=== PATIENT | male | born 1950 | race Caucasian/White ===

== ENCOUNTER 2023-04-14 07:43 | Inpatient (IN) ==
--- NOTE | 2023-04-14 08:09 | Emergency Department Note ---
Impression & Plan Closed hip fracture, Syncope ED Provider Note Diagnosis: Hip fracture, syncope Disposition: Admission CHIEF COMPLAINT: Fall HPI: Patient is a 72-year-old male presenting with complaint of left hip pain. Patient states he sleeps in a recliner at baseline was getting up to go to the bathroom was walking towards the bathroom and states he fell. Patient states he had episode of passing out when he was trying to get up and woke up on the ground. Patient denies being on any blood thinners. Patient states his only pain is at his left hip. Patient denies any active chest pain or shortness of breath. PAST MEDICAL HISTORY: See Below PAST SURGICAL HISTORY: See Below SOCIAL HISTORY: See Below HOME MEDICATIONS: See Below ALLERGIES: See Below VITALS: See Below PHYSICAL EXAMINATION: GENERAL: Well appearing, well nourished, NAD, non-toxic. EYE EXAM: Normal conjunctiva. OROPHARYNX: Moist mucus membranes. Grossly normal dentition. NECK: Supple, no midline tenderness LUNGS: Clear to auscultation. Normal chest wall mechanics. HEART: NSR ABDOMEN: Abdomen soft, non-tender, normo-active bowel sounds, no masses, no rebound or guarding BACK: No CVA TTP. SKIN: No rashes and no bruising. UPPER EXTREMITIES: Upper extremities are grossly normal LOWER EXTREMITIES: +2 dorsal pedis pulses bilateral lower extremities, no tenderness over left ankle left knee joint, tenderness over left hip joint NEURO EXAM: A&O x3,, normal speech, moves all 4 extremities, 5 out of 5 muscle strength upper and lower extremities bilaterally, Intact sensation upper and lower extremities bilaterally PSYCH: Cooperative MEDICAL DECISION MAKING: History obtained from: Patient ER Course: Patient is a 72-year-old male presenting status post fall at home with syncopal episode. Patient having left hip pain. Patient not hit his head or have neck pain. Patient found to have left hip fracture. Patient admitted to medicine service with consultation with orthopedics. Labs (independently interpreted) are significant for: Troponin negative Imaging results (independently interpreted): Hip x-ray with acute fracture present Medications given: Normal saline, morphine Consultants: Discussion was had with hospitalist who accepts patient to their service further treatment and evaluation. Discussion had with Dr. Perea of orthopedics who agrees with admission to medicine service recommends keeping patient n.p.o. after midnight for potential surgery tomorrow morning Triage Nursing notes reviewed and agree them. Vital Signs: reviewed and remarkable for: no significant abnormalities Note Past Med/Surg History Medical History Anxiety Atopic dermatitis CAD (coronary artery disease) S/p NSTEMI August 2012, leaving ER AMA Cardiac cath several weeks later showed blunted occlusion of RCA and other nonobstructive disease Esophageal reflux (07/25/12) Non compliance w medication regimen Tobacco use Surgical History History of ankle surgery Family History Father Diabetes Social History Smoking Status: Current every day smoker Tobacco Type: Cigarettes Second Hand Exposure: Yes; Do You Dip or Chew Tobacco: No; Hx Alcohol Use: No Hx Substance Use: No Preferred Language: Romanian Communication Ability: Effective 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 Beliefs That Will Affect Care: None Current Living Situation: Family Feels Safe at Home: Yes Assistive Devices: None Allergies Allergies Allergy/AdvReac Type Severity Reaction Status Date / Time No Known Allergies Allergy Unverified 04/14/23 10:18 Home Meds Home Medications Medication Instructions Recorded Confirmed escitalopram oxalate 10 mg tablet 10 mg PO QAM 04/14/23 04/14/23 gabapentin 300 mg capsule 300 mg PO PM 04/14/23 04/14/23 Results & Data (ED) Vital Signs Vital Signs - 24 hr 04/14/23 07:10 04/14/23 08:02 04/14/23 09:16 Temperature 36.6 C Temperature Source Oral Pulse Rate 95 H 75 Pulse Rate [Apical] 85 Pulse Rhythm Regular Pulse Rhythm [Apical] Regular Respiratory Rate 19 17 Respiratory Effort / Characteristics Non-Labored Non-Labored Respiratory Depth Normal Normal Respiratory Pattern Regular Blood Pressure 148/82 H Blood Pressure [Left Arm] 146/77 H Blood Pressure Mean 104 Blood Pressure Mean [Left Arm] 100 Pulse Oximetry 95 95 Oxygen Delivery Method Room Air Room Air Sepsis Recent Fever Within 48 Hours No Sepsis New/Unexplained Change in Mental Status No Sepsis Action Taken by Nursing No Action Required 04/14/23 11:00 Temperature Temperature Source Pulse Rate Pulse Rate [Apical] 88 Pulse Rhythm Pulse Rhythm [Apical] Respiratory Rate 19 Respiratory Effort / Characteristics Respiratory Depth Respiratory Pattern Blood Pressure Blood Pressure [Left Arm] 118/61 Blood Pressure Mean Blood Pressure Mean [Left Arm] 80 Pulse Oximetry 92 Oxygen Delivery Method Room Air Sepsis Recent Fever Within 48 Hours Sepsis New/Unexplained Change in Mental Status Sepsis Action Taken by Nursing Laboratory Data 04/14/23 08:40 04/14/23 08:40 Lab Results 04/14/23 04/14/23 04/14/23 Range/Units 08:30 08:40 10:02 WBC 12.79 H (4.8-10.8) K/ul RBC 5.13 (4.70-6.10) M/uL Hgb 14.5 (14.0-18.0) g/dl Hct 44.5 (42.0-52.0) % MCV 86.7 (80.0-100.0) fL MCH 28.3 (25.0-34.0) pg MCHC 32.6 (32.0-36.0) g/dL RDW Std Deviation 43.9 (36.4-46.3) fL RDW Coeff of Shaneka 13.7 (11.5-14.5) % Plt Count 233 (130-400) K/uL MPV 10.5 (9.4-12.4) fL Immature Gran % (Auto) 0.5 % Neut % (Auto) 89.5 % Lymph % (Auto) 3.8 % [place] % (Auto) 5.7 % Eos % (Auto) 0.3 % Baso % (Auto) 0.2 % Neut # (Auto) 11.46 H (1.40-6.50) K/uL Lymph # (Auto) 0.48 L (1.20-3.40) K/uL [place] # (Auto) 0.73 H (0.11-0.59) K/uL Eos # (Auto) 0.04 (0.00-0.50) K/uL Baso # (Auto) 0.02 (0.00-0.20) K/uL Immature Gran # (Auto) 0.06 (0.01-0.20) K/uL Platelet Estimate Normal (Normal) PT Cancelled 10.8 INR Cancelled 1.0 APTT Cancelled 25 PTT Ratio Cancelled 0.9 Sodium 135 L (136-145) mmol/L Potassium 4.4 (3.5-5.1) mmol/L Chloride 102 (98-107) mmol/L Carbon Dioxide 30 (21-32) mmol/L Anion Gap 3 (3-11) BUN 15 (6-23) mg/dl Creatinine 1.27 (0.6-1.4) mg/dl Est Cr Clr Drug Dosing 55.9 ml/min Est GFR ( Amer) 64.1 ml/min Est GFR (Non-Af Amer) 55.3 ml/min BUN/Creatinine Ratio 11.8 (10-20) Glucose 141 H (70-99(Fasting)) mg/dl Calcium 8.9 (8.6-10.3) mg/dl Magnesium 1.8 (1.7-2.4) mg/dl Total Bilirubin 0.5 (0.2-1.0) mg/dl AST 13 (13-39) U/L ALT 8 (7-52) U/L Alkaline Phosphatase 82 (34-104) U/L Troponin I High Sens 5.9 (0-20) pg/ml Total Protein 7.0 (6.0-8.3) gm/dl Albumin 3.8 (3.4-5.0) gm/dl Globulin 3.2 (2.5-4.0) gm/dl Albumin/Globulin Ratio 1.2 (0.9-2) Urine Color Yellow Urine Appearance Clear (Clear) Urine pH 6.5 (4.5-7.5) Ur Specific [place] 1.017 (1.000-1.030) Urine Protein Negative (Negative) Urine Glucose (UA) Negative (Negative) Urine Ketones Negative (Negative) Urine Blood Negative (Negative) Urine Nitrite Negative (Negative) Urine Bilirubin Negative (Negative) Urine Urobilinogen Negative (Negative) Ur Leukocyte Esterase Negative (Negative) Administered Medications Discontinued Medications Sodium Chloride (Nss) 500 mls @ 999 mls/hr IV .Q31M ONE Stop: 04/14/23 08:33 Last Infusion: 04/14/23 09:25 Dose: Infused Documented By: Admin: 04/14/23 08:47 Dose: 999 mls/hr Documented By: SHERRI Morphine Sulfate (Morphine Sulfate 4 Mg/Ml 1 Ml Carp\Vial) 4 mg IV NOW STA Stop: 04/14/23 08:02 Last Admin: 04/14/23 08:48 Dose: 4 mg Documented By: [facility] Imaging Data Radiologist's Impression: Hip/Pelvis X-Ray 04/14/23 08:01 XR hip LT 2V w pelvis HISTORY: 72 years-old Male fall, left hip pain . Left-sided hip pain status post fall COMPARISON: 12/06/2021 TECHNIQUE: AP view the pelvis with 2 views of the left hip FINDINGS: Unremarkable appearance of the right hip arthroplasty. Demineralized appearance of the bones. Moderate left hip osteoarthritis. There is an acute nondisplaced transcervical left femoral neck fracture with mild impaction. No dislocation or avascular necrosis. No pelvic ring fracture. IMPRESSION: Acute nondisplaced mildly impacted transcervical left femoral fracture. ACT 112: Negative or not required by law. The above report was generated using voice recognition software. It may contain grammatical, syntax or spelling errors. Electronically signed by: Michael Alford M.D. 04/14/2023 10:59 AM Chest X-Ray 04/14/23 08:02 SINGLE VIEW CHEST CLINICAL HISTORY: Syncope FINDINGS: 2 AP supine chest radiographs are compared to study dated 12/07/2021. The heart is mildly enlarged. The pulmonary vasculature is noncongested. The lungs and pleural spaces are clear. No pneumothorax is seen. The skeletal structures are osteopenic. There are chronic/healed left-sided rib fractures. IMPRESSION: No active disease in the chest. ACT 112: Negative or not required by law. Electronically signed by: Alverto Kaur M.D. 04/14/2023 10:35 AM Discharge Plan Visit Data Chief Complaint: Hip Pain Stated Complaint: FALL, HIP PAIN ED Provider: Jordon Maldonado Discharge Problem: Closed hip fracture, Syncope Forms Stand Alone Forms: [facility] Prescriptions Prescriptions: No Action gabapentin 300 mg capsule 300 mg PO PM escitalopram oxalate 10 mg tablet 10 mg PO QAM Referrals Referrals: Ankit Metz MD [Outside Practitioners] -
[2023-04-14] MEDS: SODIUM CHLORIDE 0.9% 500 ML IV ONE (08:47)
[2023-04-14] MEDS: MoRPHine SULFATE 4 MG/ML 1 ML CARP\\VIAL IV STA (08:48)
[2023-04-14 09:00] LABS: Appearance Urine Clear (Clear); Bilirubin Urine Negative (Negative); Blood Urine Negative (Negative); Color Urine Yellow; Glucose Urine UA Negative (Negative); Ketones Urine Negative (Negative); Leukocyte Esterase Urine Negative (Negative); Nitrite Urine Negative (Negative); Protein Urine Negative (Negative); Specific Gravity Urine 1.017 (1.000-1.030); Urobilinogen Urine Negative (Negative); pH Urine 6.5 (4.5-7.5)
[2023-04-14 09:16] LABS: Albumin Globulin Ratio 1.2 (0.9-2); Albumin Level 3.8 gm/dl (3.4-5.0); BUN Creatinine Ratio 11.8 (10-20); Bilirubin,Total 0.5 mg/dl (0.2-1.0); Calcium 8.9 mg/dl (8.6-10.3); Creatinine Clr Calc Pharmacy 55.9 ml/min; Est GFR (African American) 64.1 ml/min; Est GFR (Non-African American) 55.3 ml/min; Globulin 3.2 gm/dl (2.5-4.0); Magnesium 1.8 mg/dl (1.7-2.4); Potassium 4.4 mmol/L (3.5-5.1)
[2023-04-14 09:23] LABS: Troponin I High Sensitivity 5.9 pg/ml (0-20)
[2023-04-14 09:24] LABS: Basophils # (auto) 0.02 K/uL (0.00-0.20); Basophils % (auto) 0.2 %; Eosinophils # (auto) 0.04 K/uL (0.00-0.50); Eosinophils % (auto) 0.3 %; Hematocrit (blood only) 44.5 % (42.0-52.0); Hemoglobin 14.5 g/dl (14.0-18.0); Immature Granulocytes # (auto) 0.06 K/uL (0.01-0.20); Immature Granulocytes % (auto) 0.5 %; Lymphocytes # (auto) 0.48 K/uL (1.20-3.40); Lymphocytes % (auto) 3.8 %; Mean Corpuscular Hemoglobin 28.3 pg (25.0-34.0); Mean Corpuscular Hgb Conc 32.6 g/dL (32.0-36.0); Mean Corpuscular Volume 86.7 fL (80.0-100.0); Mean Platelet Volume 10.5 fL (9.4-12.4); Monocytes # (auto) 0.73 K/uL (0.11-0.59); Monocytes % (auto) 5.7 %; Neutrophils # (auto) 11.46 K/uL (1.40-6.50); Neutrophils % (auto) 89.5 %; Platelet Count 233 K/uL (130-400); Platelet Estimate Normal (Normal); RDW Coefficient of Variation 13.7 % (11.5-14.5); RDW Standard Deviation 43.9 fL (36.4-46.3); Red Blood Count 5.13 M/uL (4.70-6.10); White Blood Count 12.79 K/ul (4.8-10.8)
--- NOTE | 2023-04-14 10:36 | XRay Report ---
SINGLE VIEW CHEST CLINICAL HISTORY: Syncope FINDINGS: 2 AP supine chest radiographs are compared to study dated 12/07/2021. The heart is mildly e nlarged. The pulmonary vasculature is noncongested. The lungs and pleural spaces are clear. No pneumo thorax is seen. The skeletal structures are osteopenic. There are chronic/healed left-sided rib fract ures. IMPRESSION: No active disease in the chest. ACT 112: Negative or not required by law. Electronically signed by: Alverto Kaur M.D. 04/14/2023 10:35 AM
[2023-04-14 10:48] LABS: Partial Thromboplastin Ratio 0.9; Partial Thromboplastin Time 25 Seconds (21-31); Prothrombin Time 10.8 Seconds (9.0-12.0)
--- NOTE | 2023-04-14 11:00 | XRay Report ---
XR hip LT 2V w pelvis HISTORY: 72 years-old Male fall, left hip pain . Left-sided hip pain status post fall COMPARISON: 12/06/2021 TECHNIQUE: AP view the pelvis with 2 views of the left hip FINDINGS: Unremarkable appearance of the right hip arthroplasty. Demineralized appearance of the bones. Moderat e left hip osteoarthritis. There is an acute nondisplaced transcervical left femoral neck fracture wi th mild impaction. No dislocation or avascular necrosis. No pelvic ring fracture. IMPRESSION: Acute nondisplaced mildly impacted transcervical left femoral fracture. ACT 112: Negative or not required by law. The above report was generated using voice recognition software. It may contain grammatical, syntax o r spelling errors. Electronically signed by: Michael Alford M.D. 04/14/2023 10:59 AM
--- NOTE | 2023-04-14 11:17 | History & Physical Report ---
Date of Service April 14, 2023 Assessment & Plan (1) Transcervical fracture of left femur: (2) Syncope: (3) Atopic dermatitis: (4) CAD (coronary artery disease): Plan Mr. Monte is a 72 year old gentleman with past history of CAD, ICM, GERD, atopic dermatitis , prediabetes, HLD, prior fall with right hip fracture 2021 s/p right hemiarthroplasty who is presenting to [facility] after fall with subsequent hip fracture. Patient reports questionable syncope, but reports it to be more disorientation after landing. Ortho consulted, planning for surgical intervention in the am. Patient with long standing medication noncompliance, mostly secondary to financial limitations. #Left transcervical femoral fracture Hip XR IMPRESSION: Acute nondisplaced mildly impacted transcervical left femoral fracture. Ortho consult -NPO midnight for surgical intervention in am Tylenol 1000mg q8h scheduled, po oxy 5 for moderate, iv morphine 1mg severe #Mechanical fall #c/f Syncopal episode Patient's reports suggest disorientation on ground after fall 2/2 pain, as he denies presyncope and recalls "fall" -Given cardiac history noted below, plan for ECHO and tele monitoring Trend trop and obtain BNP CT head not obtained on admit, ordered #History of ICM #HTN #Obstructive CAD s/p cath 2012, NSTEMI occluded RCA -Monitor on tele -Consider initiating low dose BB post-operatively, encourage ASA s/p procedure ECHO as above Monitor on tele RCRI calss III risk History of medication noncompliance Taking Metoprolol BID after discontinuing does not take heart meds A1C Gabapentin 300mg BID Escitalopram 10mg daily CKD III #Leukocytosis -UA negative, no infectious symptoms at this time -CBC in am #COPD no wheezing noted, CXR clear, rhonchi cleared with cough Only uses albuterol inhaler secondary to cost Albuterol nebs PRN IS and monitor post-op o2 levels #Tobacco use 0.5-1ppd day #Atopic Dermatitis Didn't receive dupixent injections for "months" Will amlactin given irritation and excoriations from scratching on lower extremities PCP Dr Dunham DVT SCDs Admit med tele Admission and Anticipated Discharge Date Admission Date: Time spent evaluating patient, direct bedside care, chart review, placing orders, interpretation of diagnostic studies, discussion with consultants, patient, and family members, as well as other required patient management activities is 60 minutes. History of Present Illness Chief Complaint: Left hip pain Primary Care Provider: Geena Dunham DO Mr. Monte is a 72 year old gentleman with past medical history remarkable for obstructive CAD s/p [facility] with RCA disease, ICM, HTN, GERD, prediabetes and prior mechanical fall with right hip fracture s/p replacement who presented to [facility] ED due to left hip pain after fall. Patient states that sleeps in a recliner in his sister's apartment with a bedside commode in the living room with him. He woke to use the commode and notes that he just "felt [himself] going forward." He didn't feel like he "passed out" but suspects the fall and pain made him feel disoriented. He notes that he does not take Metoprolol, despite recently being prescribed this medication, as cost is limiting. He also does not take aspirin. He only takes his escitalopram and gabapentin once daily. He states he has otherwise been in his usual state of health, denying any chest pain, palpitations, syncope or near syncope, fevers, GI upset, or other acute concerns. He notes that he doesn't "go out much" and his sister often gets the groceries. He reports feeling chronic balance issues after his right hip replacement, noting his leg just never feels "quite balanced." He denies any recent alcohol use. He smokes 05.-1ppd No illicit substances In the ED, vitals were notable for BP in 140s, HR of 80 to 90s, and O2 sat of low 90s on room air. Imaging revealed left transcervical femur fracture. CXR WNL EKG reviewed, no acute changes appreciate ED interventions: morphine Consultants: Ortho Patient to be admitted to [facility] for further evaluation and management of left hip fracture. Allergies Allergy/AdvReac Type Severity Reaction Status Date / Time No Known Allergies Allergy Unverified 04/14/23 10:18 Home Medications Medication Instructions Recorded Confirmed Type escitalopram oxalate 10 mg tablet 10 mg PO QAM 04/14/23 04/14/23 History gabapentin 300 mg capsule 300 mg PO PM 04/14/23 04/14/23 History Past Med/Surg History Medical History Anxiety Atopic dermatitis CAD (coronary artery disease) S/p NSTEMI August 2012, leaving ER AMA Cardiac cath several weeks later showed blunted occlusion of RCA and other nonobstructive disease Esophageal reflux (07/25/12) Non compliance w medication regimen Tobacco use Surgical History History of ankle surgery Family History Father Diabetes Social History Smoking Status: Current every day smoker Tobacco Type: Cigarettes Second Hand Exposure: Yes; Do You Dip or Chew Tobacco: No; Hx Alcohol Use: No Hx Substance Use: No Preferred Language: Slovenian Communication Ability: Effective Control Panel Operator Required: No Beliefs That Will Affect Care: None Current Living Situation: Family Feels Safe at Home: Yes Assistive Devices: None Review of Systems Review of Systems: Constitutional: (-) fever/chills, (-) recent loss of weight, (-) appetite changes, (-) night sweats. Head: (-) headache, (-) dizziness. Eye: (-) blurring of vision, (-) double vision, (-) redness. Ear: (-) hearing loss, (-) discharge, (-) vertigo Nose: (-) discharge, (-) bleeding, (-) congestion, (-) post nasal drip. Throat: (-) sore throat, (-) hoarseness of voice, (-) odynophagia. Cardiovascular: (-) chest pain, (-) palpitations, (-) syncope, (-) orthopnea, (- ) PND, (-) leg swelling. Respiratory: (-) shortness of breath, (-) cough, (-) wheezing, (-) hemoptysis. Neuro: (+) weakness in extremities, (-) numbness, (-) tingling, (-) tremor. Gastrointestinal: (-) belly pain, (-) belly distension, (-) nausea, (-) vomiting, (-) diarrhea, (-) constipation, (-) na, (-) hematemesis, (-) hem atochezia, (-) bowel incontinence Genitourinary: (-) hematuria, (-) dysuria, (-) polyuria, (-) hesitancy, (-) frequency, (-) urinary incontinence. Musculoskeletal: (-) myalgia, (-) arthralgia. Skin: (+) diffuse dryness, chronic Endocrine: (-) heat/cold intolerance. Psychiatry: (-) depression, (-) hallucination. Physical Exam Physical Exam: GENERAL APPEARANCE: AxOx4, mildly uncomfortable gentleman HEENT: NC, AT. MMM. EOMI, clear conjunctiva, oropharynx clear. NECK: Supple without lymphadenopathy. No stiffness or restricted ROM. HEART: Normal rate and regular rhythm, normal S1/S1, no m/r/g LUNGS: CTAB, moving air well. few rhonchi, cleared with cough ABDOMEN: Soft, nontender, nondistended with good bowel sounds heard. BACK: No CVAT, no obvious deformity. EXTREMITIES: Without cyanosis, clubbing or edema. pulse and sensation intact BLE NEUROLOGICAL: Grossly nonfocal. Alert and oriented, moving all 4 extremities. CN not formally tested but appear grossly intact. Skin: diffuse lower extremity xerosis, L>R. Results & Data Results & Data Vital Signs (Past 12 Hours) Vital Signs Temp Pulse Pulse Resp BP BP Pulse Ox 04/14/23 11:00 88 19 118/61 92 04/14/23 09:16 75 04/14/23 08:02 36.6 C 85 17 146/77 H 95 04/14/23 07:10 95 H 19 148/82 H 95 O2 Del Method 04/14/23 11:00 Room Air 04/14/23 09:16 04/14/23 08:02 Room Air 04/14/23 07:10 Room Air Laboratory Results Short CBC 04/14/23 Range/Units 08:40 WBC 12.79 H (4.8-10.8) K/ul Hgb 14.5 (14.0-18.0) g/dl Hct 44.5 (42.0-52.0) % Plt Count 233 (130-400) K/uL BMP 04/14/23 08:40 Sodium 135 L Potassium 4.4 Chloride 102 Carbon Dioxide 30 BUN 15 Creatinine 1.27 Glucose 141 H Calcium 8.9 Liver Function 04/14/23 Range/Units 08:40 Total Bilirubin 0.5 (0.2-1.0) mg/dl AST 13 (13-39) U/L ALT 8 (7-52) U/L Alkaline Phosphatase 82 (34-104) U/L Albumin 3.8 (3.4-5.0) gm/dl Urine 04/14/23 Range/Units 08:30 Urine Color Yellow Urine Appearance Clear (Clear) Urine pH 6.5 (4.5-7.5) Ur Specific [place] 1.017 (1.000-1.030) Urine Protein Negative (Negative) Urine Glucose (UA) Negative (Negative) Diagnostic Findings Hip/Pelvis X-Ray 04/14/23 08:01 XR hip LT 2V w pelvis HISTORY: 72 years-old Male fall, left hip pain . Left-sided hip pain status post fall COMPARISON: 12/06/2021 TECHNIQUE: AP view the pelvis with 2 views of the left hip FINDINGS: Unremarkable appearance of the right hip arthroplasty. Demineralized appearance of the bones. Moderate left hip osteoarthritis. There is an acute nondisplaced transcervical left femoral neck fracture with mild impaction. No dislocation or avascular necrosis. No pelvic ring fracture. IMPRESSION: Acute nondisplaced mildly impacted transcervical left femoral fracture. ACT 112: Negative or not required by law. The above report was generated using voice recognition software. It may contain grammatical, syntax or spelling errors. Electronically signed by: Michael Alford M.D. 04/14/2023 10:59 AM Chest X-Ray 04/14/23 08:02 SINGLE VIEW CHEST CLINICAL HISTORY: Syncope FINDINGS: 2 AP supine chest radiographs are compared to study dated 12/07/2021. The heart is mildly enlarged. The pulmonary vasculature is noncongested. The lungs and pleural spaces are clear. No pneumothorax is seen. The skeletal structures are osteopenic. There are chronic/healed left-sided rib fractures. IMPRESSION: No active disease in the chest. ACT 112: Negative or not required by law. Electronically signed by: Alverto Kaur M.D. 04/14/2023 10:35 AM Medications Administered Home Medications Medication Instructions Recorded Confirmed Last Taken aspirin 81 mg tablet,delayed 81 mg PO BID #10 tabs 12/08/21 04/14/23 04/13/23 release magnesium oxide 400 mg (241.3 mg 400 mg PO QAM #10 tabs 10/04/14/23 04/13/23 magnesium) tablet escitalopram oxalate 10 mg tablet 10 mg PO QAM 04/14/23 04/14/23 04/13/23 gabapentin 300 mg capsule 300 mg PO BID 04/14/23 04/14/23 04/13/23
[2023-04-14] MEDS ORDERED: MoRPHine SULFATE 2 MG/ML CARP IV PRN (11:49)
[2023-04-14] MEDS: ACETAMINOPHEN 500 MG TAB PO SCH (12:51)
--- OUTSIDE RECORDS SUMMARY | 2023-04-14 13:05 | External Medical Summary | Summary of Care ---
Author Name Unknown Organization [facility] Address [address] [place] [address] Phone [phone] Care Team Providers Care Hand Grinder Name Role Phone Geena Dunham DO Primary Care Provider [phone] Reason for Visit * Reason Comments Follow Up Encounter Details Date Type Department Care Team ([facility] st Contact Info) Description 03/29/2023 11:50 AM EST Office Visit [place] [address] [place] [address] Geena Dunham DO [address] [place] [address] COPD, moderate (HCC)*; Agoraphobia with panic attacks; ATNIA (generalized anxiety disorder); Chronic systolic congestive heart failure (HCC); Dyslipidemia, goal LDL below 70; Prediabetes; Chronic kidney disease, stage 3a (HCC) Allergies No known active allergiesdocumented as of this encounter (statuses as of 03/29/2023) Medications Medication Sig Dispensed Refills Start Date End Date Status aspirin enteric coated (ECOTRIN LOW STRENGTH) 81 MG TBECIndications:ASC VD (arteriosclerotic cardiovascular disease),Old myocardial infarct Take 1 Tab by mouth daily. 100 Tab 5 07/28/2016 Active Nebulizers (NEBULIZER COMPRESSOR) MISCIndications:Int erstitial lung disease (HCC) Inhale via nebulizer. Use as directed. 1 Each 1 09/06/2018 Active Additional Information Patient not taking.Reported on 02/11/2022 Respiratory Therapy Supplies (NEBULIZER/TUBING/M OUTHPIECE) KITIndications:Inte rstitial lung disease (HCC) Use to inhaler medications 1 Kit 1 09/06/2018 Active Additional Information Patient not taking.Reported on 02/11/2022 Albuterol Sulfate HFA 108 (90 Base) MCG/ACT Inhalation Aerosol SolutionIndications :Chronic cough INHALE 2 PUFFS BY MOUTH EVERY 4 HOURS NEEDED FOR WHEEZING 18 g 0 07/10/2021 Active Additional Information Patient not taking.Reported on 09/25/2022 Dupixent 300 MG/2ML Subcutaneous Solution Pen-injector (Dupilumab) Inject 600mg (2 pens) under the skin once. Then inject 300mg (1 pen) under the skin every 2 weeks thereafter. 12 mL 1 10/06/2021 Active Sennosides-Docusate Sodium 8.6-50 MG Oral Tablet (Senokot-S) 2 Tablets. 0 12/08/2021 Active Potassium Chloride ER 10 MEQ Oral Capsule Extended ReleaseIndications: Leg swelling Take 1 Capsule by mouth in the morning and 1 Capsule before bedtime. 60 Capsule 3 02/11/2022 Active Additional Information Patient not taking.Reported on 09/25/2022 Fluticasone Furoate-Vilanterol 100-25 MCG/ACT Inhalation Aerosol Powder Breath Activated (BREO ellipta)Indications :COPD, moderate (HCC) Inhale 1 Puff by mouth in the morning. 14 Each 10 09/25/2022 Active Additional Information Patient not taking.Reported on 03/29/2023 Escitalopram Oxalate 10 MG Oral Tablet (Lexapro)Indication s:Agoraphobia with panic attacks,ATNIA (generalized anxiety disorder) Take 1 Tablet by mouth in the morning. 90 Tablet 5 03/29/2023 Active Gabapentin 300 MG Oral Capsule (Neurontin) Take 1 Capsule by mouth in the morning and 1 Capsule at noon and 1 Capsule before bedtime. 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 60 Tablet 5 03/29/2023 Active Escitalopram Oxalate 10 MG Oral Tablet (Lexapro)Indication s:Agoraphobia with panic attacks,TANIA (generalized anxiety disorder) Take 1 Tablet by mouth in the morning. 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 Take 1 Tablet (25 mg) by mouth in the morning and 1 Tablet (25 mg) before bedtime.. 60 Tablet 5 09/25/2022 4 Discontinu ed(Refill) Gabapentin 300 MG Oral Capsule (Neurontin) Take 1 Capsule by mouth in the morning and 1 Capsule at noon and 1 Capsule before bedtime. 0 4 Discontinu ed(Refill) Hospital, Clinic, or Other Facility Administered Medication Ordered Dose Route Frequency Start Date End Date Status albuterol (PROVENTIL HFA) inhaler 4 PuffIndications:Chronic cough 4 Puff IN ONCE PRN 09/05/2017 Active Dupilumab (Dupixent) prefilled syringe 300 mgIndications:Atopic dermatitis, unspecified type 300 mg SC [id number] 08/07/2022 Active documented as of this encounter (statuses as of 03/29/2023) Active Problems Problem Noted Date Diagnosed Date COPD, moderate 09/25/2022 Systolic congestive heart failure 03/31/2022 Recurrent major depressive disorder 02/20/2022 Chronic kidney disease, stage 3a 03/24/2021 Overview: Per CKD protocol Prediabetes 03/24/2021 Overview: Per Prediabetes protocol Immunization refused 09/03/2017 Colonoscopy refused 09/03/2017 Sleep disturbance 02/27/2014 Agoraphobia with panic attacks 02/27/2014 ASCVD (arteriosclerotic cardiovascular disease) 07/25/2012 Old myocardial infarct 07/25/2012 Tobacco use disorder 11/10/2011 Diaphragmatic hernia 08/01/2002 Esophageal reflux 06/28/2002 Dyslipidemia, goal LDL below 70 documented as of this encounter (statuses as of 03/29/2023) Resolved Problems Problem Noted Date Diagnosed Date Resolved Date Viral gastroenteritis 02/27/20142016 Dehydration 02/27/2014 07/28/2016 Constipation 02/27/2014 07/28/2016 Tobacco use disorder 02/27/2014 017 Dyslipidemia, goal LDL below 70 11/29/2012 07/28/2016 Chronic coronary artery disease 09/02/2012 07/28/2016 Obesity, Class I, BMI 30-34.9 08/10/2012 07/28/2016 Overview: bmi= 30.06 08/10/12 NSTEMI (non-ST elevated myoc ardial infarction) 07/25/2012 07/28/2016 Overweight (BMI 25.0-29.9) 11/10/2011 0 07/28/2016 Overview: bmi= 29.64 11/10/11 Gastroesophageal reflux 11/10/201107/10 Vaccine refused by patient 11/10/2011 0 07/28/2016 ACUTE URI NOS 06/28/2002 03/29/2008 Overview: Resolved per Benign Acute Dxs Protocol #3 ACUTE BRONCHITIS 03/19/2000 07/28/2016 FLU W RESP MANIFEST NEC 03/19/200007/10 Tobacco use disorder 03/19/2000 012 HYPERLIPIDEMIA NEC-NOS 03/19/200007/28 Motion sickness 11/15/1998 07/29/2016 HTN, goal below 140/90 07/28 documented as of this encounter (statuses as of 03/29/2023) Social History Tobacco Use Types Packs/Day Years Used Date Smoking Tobacco: Every Day Cigarettes 1.5 50 Smokeless Tobacco: Never Comments:began at age13 or 1 6--7/18-1ppd Alcohol Use Standard Drinks/Week Comments Yes 0 (1 standard drink = 0.6 oz pur e alcohol) none in 2 yrs PHQ-2 Answer Date Recorded PHQ Adult Total Score 11 02/11/2022 Hunger Vital Sign Answer Date Recorded Within the past 12 months, y ou worried that your food would run out before you got the money to buy more. Never true 02/11/19 23 Within the past 12 months, t he food you bought just didn't last and you didn't have money to get more. Never true 02/11/2022 Sex and Gender Information Value Date Recorded Sex Assigned at Male 02/11/2022 9:14 AM EST Gender Identity Male 02/11/2022 9:14 AM EST Sexual Orientation Straight 02/11/2022 9: 14 AM EST Job Start Date Occupation Industry Not on file Not on file Not on file documented as of this encounter Last Filed Vital Signs Vital Sign Reading Time Taken Comments Blood Pressure 118/70 03/29/2023 12:00 PM EST Pulse 87 03/29/2023 12:00 PM EST Temperature 36.4 C (97.5 F) 03/29/2023 12:[address] Respiratory Rate 18 03/29/2023 12:00 PM EST Oxygen Saturation 93% 03/29/2023 12:00 PM EST Inhaled Oxygen Concentration - - Weight 89.4 kg (197 lb) 03/29/2023 12:00 PM EST Height 182.9 cm (6') 03/29/2023 12:00 PM EST Body Mass Index 26.72 03/29/2023 12:00 PM EST documented in this encounter Progress Notes * Geena Dunham, - 03/29/2023 12:16 PM EST Subjective: Des Monte Jr. is a 72 year old male. Chief Complaint Patient presents with Follow Up HPI: 72 year old male here today for a follow-up. He carries hx of prediabetes, dyslipdemia, COPD, CAD, depression, insomnia, and hx of Systolic Congestive heart failure. He is only taking lexapro and gabapentin. Needs refills. He once again stopped the metoprolol. He thinks due to cost. Will send in rx again. Ongoing tobacco use. He has missed his injections Dupixent for her dermatitis. Suggested to call the office back. He was not able to afford his Breo. He uses the rescue inhaler as n eeded. He has not been ill. No hospital stays. PHM: Patient Active Problem List Diagnosis Code Esophageal reflux K21.9 Diaphragmatic hernia K44.9 Dyslipidemia, goal LDL below 70 E78.5 Tobacco use disorder F17.200 Sleep disturbance G47.9 Agoraphobia with panic attacks F40.01 ASCVD (arteriosclerotic cardiovascular disease) I25.10 Old myocardial infarct I25.2 Immunization refused Z28.21 Colonoscopy refused Z53.20 Chronic kidney disease, stage 3a ([facility]) N18.31 Prediabetes R73.03 Recurrent major depressive disorder ([facility]) F33.9 Systolic congestive heart failure ([facility]) I50.20 COPD, moderate ([facility]) J44.9 Current Outpatient Medications Medication Sig Dispense Refill aspirin enteric coated (ECOTRIN LOW STRENGTH) 81 MG TBEC Take 1 Tab by mouth daily. 100 Tab 5 Escitalopram Oxalate 10 MG Oral Tablet (Lexapro) Take 1 Tablet by mouth in the morning. 90 Tablet 5 Gabapentin 300 MG Oral Capsule (Neurontin) Take 1 Capsule by mouth in the morning and 1 Capsule at noon and 1 Capsule before bedtime. 90 Capsule 3 Nebulizers (NEBULIZER COMPRESSOR) MIS Inhale via nebulizer. Use as directed. (Patient not taking: Reported on 02/11/2022) 1 Each 1 Respiratory Therapy Supplies (NEBULIZER/TUBING/MOUTHPIECE) KIT Use to inhaler medications (Patient not taking: Reported on 02/11/2022) 1 Kit 1 Albuterol Sulfate HFA 108 (90 Base) MCG/ACT Inhalation Aerosol Solution INHALE 2 PUFFS BY MOUTH EVERY 4 HOURS NEEDED FOR WHEEZING (Patient not taking: Reported on 09/25/2022) 18 g 0 Dupixent 300 MG/2ML Subcutaneous Solution Pen-injector (Dupilumab) Inject 600mg (2 pens) under the skin once. Then inject 300mg (1 pen) under the skin every 2 weeks thereafter. (Patient not taking: Reported on 02/11/2022) 12 mL 1 Sennosides-Docusate Sodium 8.6-50 MG Oral Tablet (Senokot-S) 2 Tablets. (Patient not taking: Reported on 02/11/2022) Potassium Chloride ER 10 MEQ Oral Capsule Extended Release Take 1 Capsule by mouth in the morning and 1 Capsule before bedtime. (Patient not taking: Reported on 09/25/2022) 60 Capsule 3 Fluticasone Furoate-Vilanterol 100-25 MCG/ACT Inhalation Aerosol Powder Breath Activated (BREO ellipta) Inhale 1 Puff by mouth in the morning. (Patient not taking: Reported on 03/29/2023) 14 Each 10 Metoprolol Succinate ER 25 MG Oral Tablet Extended Release 24 Hour (toPROL XL) Take 1 Tablet by mouth in the morning and 1 Tablet before bedtime. Take 1 Tablet (25 mg) by mouth in the morning and 1 Tablet (25 mg) before bedtime.. (Patient not taking: Reported on 03/29/2023) 60 Tablet 5 Current Facility-Administered Medications Medication Dose Route Frequency Provider Last Rate Last Admin albuterol (PROVENTIL HFA) inhaler 4 Puff 4 Puff Inhalation Once PRN Izzy Neri MD Dupilumab (Dupixent) prefilled syringe 300 mg 300 mg Subcutaneous Q2 Weeks Paula Alanis PA-C 300 mg at 02/05/23 1052 Review of patient's allergies indicates: No Known Allergies Objective: BP 118/70 | Pulse 87 | Temp 36.4 C (97.5 F) | Resp 18 | Ht 1.829 m (6') | Wt 89.4 kg (197 lb) |SpO2 93% | BMI 26.72 kg/m | BSA 2.13 m Physical Exam: General: alert, healthy, and no distress Heart: regular rate & rhythm, no murmur, and no gallops Lungs: chest symmetric with normal AP diameter, no chest deformities noted, no chest wall tenderness, lungs clear to auscultation Extremities: no edema ASSESSMENT/PLAN: COPD, moderate (HCC) (Primary) Agoraphobia with panic attacks - Escitalopram Oxalate 10 MG Oral Tablet (Lexapro); Take 1 Tablet by mouth in the morning. TANIA (generalized anxiety disorder) - Escitalopram Oxalate 10 MG Oral Tablet (Lexapro); Take 1 Tablet by mouth in the morning. Chronic systolic congestive heart failure (HCC) - Metoprolol Succinate ER 25 MG Oral Tablet Extended Release 24 Hour (toPROL XL); Take 1 Tablet by mouth in the morning and 1 Tablet before bedtime. Dyslipidemia, goal LDL below 70 Prediabetes - HEMOGLOBIN A1C; Future; Expected date: 03/29/2023 Chronic kidney disease, stage 3a (HCC) - BASIC METABOLIC PANEL; Future; Expected date: 03/29/2023 Other orders - Gabapentin 300 MG Oral Capsule (Neurontin); Take 1 Capsule by mouth in the morning and 1 Capsule at noon and 1 Capsule before bedtime. Follow Up: Return in about 6 months (around 09/27/2023) for Labs Today. | For: Labs Today Geena Dunham DO documented in this encounter Nursing Notes * Mis Waite LPN - 03/29/2023 12:04 PM EST The patient has been properly identified by confirmation of name and date of . Chief Complaint Patient presents with Follow Up documented in this encounter Plan of Treatment Upcoming Encounters Date Type Department Care Team (Late st Contact Info) Description 10/06/2023 12:10 PM EDT Office Visit [facility] [address] [place] [id number] Geena Dunham DO [address] [place] [address] Pending Results Name Type Priority Associated Diagnoses Date /Time HEMOGLOBIN A1C Lab Routine Prediabetes 03/29/2023 12:36 PM EST BASIC METABOLIC PANEL Lab Routine Chronic kidney disease, stage 3a (HCC) 03/29/2023 12:36 PM EST Scheduled Orders Name Type Priority Associated Diagnoses Orde r Schedule HEMOGLOBIN A1C Lab Routine Prediabetes Expected: 03/29/2023 (Approximate), Expires: 03/28/2024 BASIC METABOLIC PANEL Lab Routine Chronic kidney disease, stage 3a (HCC) Expected: 03/29/2023 (Approximate), Expires: 03/28/2024 Health Maintenance Due Date Last Done Comments DISCUSS TOBACCO CESSATION (REFER TO SMARTSET #4389) 1948 Pneumococcal Vaccine: 65+ Years (1 of 2 - PCV) 1954 Albumin/Creatinine Ratio 1966 Alpha-1 Antitrypsin 1966 CKD PHOS USE SMARTSET 02601 1966 Hepatitis C Screening 1966 Cologuard 1993 Colonoscopy 1993 Colorectal Cancer Screening 1993 Fecal Occult Blood Test 1993 Sigmoidoscopy 1993 LUNG CANCER SCREENING - USE SMARTSET 96956 1998 Zoster Vaccines (1 of 2) 1998 DTaP,Tdap,and Td Vaccines (1 - Tdap) 06/09/1998 06/08/1998 AAA Screening 2013 Depression, Most Recent Score >= 10 (will fire each visit until score < 10) 02/12/2022 02/11/2022 *COPD SEVERITY VERIFIED BY PFT 09/28/2022 COVID-19 Vaccine ( season) 2022 Influenza Vaccine (FLU shot) (#1) 2022 GFR 03/28/2023 09/25/2022, 0 05/2022, 12/16/2021, Additional history exists CKD HGB USE SMARTSET 35314 09/26/202309/25, 12/16/2021, 12/09/2021, Additional history exists HbA1c 09/26/2023 09/25/2022, 03/17/2021 O2 ASSESSMENT COMPLETED IN PAST YEAR FOR COPD 03/29/2024 03/29/2023 GARDASIL-HPV IMMUNIZATION SERIES Aged Out No longer eligible based on patient's age to complete this topic Hepatitis B Aged Out No longer eligi ble based on patient's age to complete this topic MENINGOCOCCAL (MENACTRA/MENVEO) Aged Out No longer eligible based on patient's age to complete this topic documented as of this encounter Medical Devices Not on filedocumented as of this encounter Visit Diagnoses Diagnosis COPD, moderate (HCC)- Primary Chronic airway obstruction, not elsewhere classified 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
--- OUTSIDE RECORDS SUMMARY | 2023-04-14 13:06 | External Medical Summary | Summary of Care ---
Author Name Unknown Organization [facility] Address [address] [place] [address] Phone [phone] Care Team Providers Care Shake Maker Name Role Phone Geena Dunham DO Primary Care Provider Reason for Visit * Reason Onset Date Comments Health Maintenance 11/25/2022 Encounter Details Date Type Department Care Team Description 11/25/2022 Telephone [facility] [address] [place] [address] Geena Dunham DO [address] [place] [address] Health Maintenance Allergies No known active allergiesdocumented as of this encounter (statuses as of 11/25/2022) Medications Medication Sig Dispensed Refills Start Date End Date Status aspirin enteric coated (ECOTRIN LOW STRENGTH) 81 MG TBECIndications:ASCV D (arteriosclerotic cardiovascular disease),Old myocardial infarct Take 1 Tab by mouth daily. 100 Tab 5 07/28/2016 Active Additional Information Patient not taking.Reported on 02/11/2022 Nebulizers (NEBULIZER COMPRESSOR) MISCIndications:Inte rstitial lung disease (HCC) Inhale via nebulizer. Use as directed. 1 Each 09/06/2018 Active Additional Information Patient not taking.Reported on 02/11/2022 Respiratory Therapy Supplies (NEBULIZER/TUBING/MO UTHPIECE) KITIndications:Inter stitial lung disease (HCC) Use to inhaler medications 1 Kit 1 09/06/2018 Active Additional Information Patient not taking.Reported on 02/11/2022 Albuterol Sulfate HFA 108 (90 Base) MCG/ACT Inhalation Aerosol SolutionIndications: Chronic cough INHALE 2 PUFFS BY MOUTH EVERY [...] Chloride ER 10 MEQ Oral Capsule Extended ReleaseIndications:L eg swelling Take 1 Capsule by mouth in the morning and 1 Capsule before bedtime. 60 Capsule 3 02/11/2022 Active Additional Information Patient not taking.Reported on 09/25/2022 Escitalopram Oxalate 10 MG Oral Tablet (Lexapro)Indications :Agoraphobia with panic attacks,TANIA (generalized anxiety disorder) Take 1 Tablet by mouth in the morning. 30 Tablet 5 03/31/2022 Active Fluticasone Furoate-Vilanterol 100-25 MCG/ACT Inhalation Aerosol Powder Breath Activated (BREO ellipta)Indications: COPD, moderate (HCC) Inhale 1 Puff by mouth in the morning. 14 Each 09/25/2022 Active Metoprolol Succinate ER 25 MG Oral Tablet Extended Release 24 Hour (toPROL XL)Indications:Chron ic systolic congestive heart failure (HCC) Take 1 Tablet by mouth in the morning and 1 Tablet before bedtime. Take 1 Tablet (25 mg) by mouth in the morning and 1 Tablet (25 mg) before bedtime.. 60 Tablet 5 09/25/2022 Active Hospital, Clinic, or Other Facility Administered Medication Ordered Dose Route Frequency Start Date End Date Status albuterol (PROVENTIL HFA) inhaler 4 PuffIndications:Chronic cough 4 Puff IN ONCE PRN 09/05/2017 Active Dupilumab (Dupixent) prefilled syringe 300 mgIndications:Atopic dermatitis, unspecified type 300 mg SC [id number] 08/07/2022 Active documented as of this encounter (statuses as of 11/25/2022) Active Problems Problem Noted Date COPD, moderate 09/25/2022 Systolic congestive heart failure 2022 Recurrent major depressive disorder 02/08 Chronic kidney disease, stage 3a 022 Overview: Per CKD protocol Prediabetes 03/24/2021 Overview: Per Prediabetes protocol Immunization refused 09/03/2017 Colonoscopy refused 09/03/2017 Sleep disturbance 02/27/2014 Agoraphobia with panic attacks 5 ASCVD (arteriosclerotic cardiovascular d isease) 07/25/2012 Old myocardial infarct 07/25/2012 Tobacco use disorder 11/10/2011 Diaphragmatic hernia 08/01/2002 Esophageal reflux 06/28/2002 Dyslipidemia, goal LDL below 70 documented as of this encounter (statuses as of 11/25/2022) Resolved Problems Problem Noted Date Resolved Date Viral gastroenteritis 02/27/2014 07/28/2016 Dehydration 02/27/2014 07/28/2016 Constipation 02/27/2014 07/28/2016 Tobacco use disorder 02/27/2014 07/28/2016 Dyslipidemia, goal LDL below 70 11/29/2012 07/28/2016 Chronic coronary artery disease 09/02/2012 07/28/2016 Obesity, Class I, BMI 30-34.9 08/10/2012 Overview: bmi= 30.06 08/10/12 NSTEMI (non-ST elevated myocardial infarction) 0 07/25/2012 07/28/2016 Overweight (BMI 25.0-29.9) 11/10/201107/28 Overview: bmi= 29.64 11/10/11 Gastroesophageal reflux 11/10/2011 07/29/19 17 Vaccine refused by patient 11/10/201107/28 ACUTE URI NOS 06/28/2002 03/29/2008 Overview: Resolved per Benign Acute Dxs Protocol #3 ACUTE BRONCHITIS 03/19/2000 07/28/2016 FLU W RESP MANIFEST NEC 03/19/2000 07/29/19 17 Tobacco use disorder 03/19/2000 11/10/2011 HYPERLIPIDEMIA NEC-NOS 03/19/2000 7 Motion sickness 11/15/1998 07/29/2016 HTN, goal below 140/90 7 documented as of this encounter (statuses as of 11/25/2022) Social History Tobacco Use Types Packs/Day Years Used Date Smoking Tobacco: Every Day Cigarettes 1.5 50 Smokeless Tobacco: Never Comments:began at age13 or 1 6--7/18-1ppd Alcohol Use Standard Drinks/Week Comments Yes 0 (1 standard drink = 0.6 oz pur e alcohol) none in 2 yrs Food Insecurity Answer Date Recorded Within the past 12 months, y ou worried that your food would run out before you got money to buy more. Never true 02/11/2022 Within the past 12 months, t he food you bought just didn't last and you didn't have money to get more. Never true 02/11/2022 Sex Assigned at Date Recorded Male 02/11/2022 9:[address] Job Start Date Occupation Industry Not on file Not on file Not on file documented as of this encounter Miscellaneous Notes * Telephone Encounter - Adamaris Zapata LPN - 11/25/2022 2:24 PM EDT Care Gaps Comprehensive Care Outreach Last Office/Telemedicine Visit: 09/25/2022 (in office), Visit date not found (telemedicine) Next Office Visit: 03/29/2023 Hemoglobin AIC Results: Lab Results Component Value Date/Time HEMOGLOBIN A1C - [facility] 6.0 (H) 09/25/2022 02:10 PM HEMOGLOBIN A1C - [facility] 5.9 (H) 03/17/2021 04:20 PM Reviewed Health Maintenance below: Health Maintenance Topic Date Due DISCUSS TOBACCO CESSATION (REFER TO SMARTSET #9191) Never done COVID-19 Vaccine (1) Never done Pneumococcal Vaccine: 65+ Years (1 - PCV) Never done Albumin/Creatinine Ratio Never done CKD PHOS USE SMARTSET 23972 Never done Alpha-1 Antitrypsin Never done Hepatitis C Screening Never done Colorectal Cancer Screening Never done LUNG CANCER SCREENING - USE SMARTSET 75271 Never done Zoster Vaccines (1 of 2) Never done DTaP,Tdap,and Td Vaccines (1 - Tdap) 06/09/1998 AAA Screening Never done Depression, Most Recent Score >= 10 (will fire each visit until score < 10) 02/12/2022 Labs/urine add lipid Aaa This test checks for an enlargement of your aorta at the level of your abdomen (the main artery that carries blood from your heart to the rest of your body). The majority of AAAs are asymptomatic andcan be fatal if rupture. Recommendation for AAA screenings include one-time AAA screening with ultrasound those who are 65-75 years of age who have ever smoked. The screening results will tell your do ctor if there's anything they need to examine more closely. Letter was just sent this month on aaa Care Gap Outreach Action Taken: Unable to reach picks up and hangs up documented in this encounter Plan of Treatment Upcoming Encounters Date Type Specialty Care Team Description 11/27/2022 Nurse Only Dermatology Sp, Nurse Dermatology [address] [facility], [place] [id number] 12/11/2022 Nurse Only Dermatology Sp, Nurse Dermatology [address] [place] [address] 12/25/2022 Nurse Only Dermatology Sp, Nurse Dermatology [address] [facility], [place] [address] 01/08/2023 Nurse Only Dermatology Sp, Nurse Dermatology [address] [facility], [place] [address] 01/22/2023 Nurse Only Dermatology Sp, Nurse Dermatology [address] [facility], [place] [address] 02/05/2023 Nurse Only Dermatology Sp, Nurse Dermatology [address] [facility], [place] [address] 02/19/2023 Nurse Only Dermatology Sp, Nurse Dermatology [address] [facility], [place] [address] 03/29/2023 Office Visit Family Medicine Geena Dunham, [address] [place] [address] Health Maintenance Due Date Last Done Comments DISCUSS TOBACCO CESSATION (REFER TO SMARTSET #0841) 1950 COVID-19 Vaccine (#1) 1948 Pneumococcal Vaccine: 65+ Years (1 - PCV) 1954 Albumin/Creatinine Ratio 1966 Alpha-1 Antitrypsin 1966 CKD PHOS USE SMARTSET 35977 1966 Hepatitis C Screening 1966 Cologuard 1993 Colonoscopy 1993 Colorectal Cancer Screening 1993 Fecal Occult Blood Test 1993 Sigmoidoscopy 1993 LUNG CANCER SCREENING - USE SMARTSET 89795 1998 Zoster Vaccines (1 of 2) 1998 DTaP,Tdap,and Td Vaccines (1 - Tdap) 06/09/1998 06/08/1998 AAA Screening 2013 Depression, Most Recent Score >= 10 (will fire each visit until score < 10) 02/12/2022 02/11/2022 *COPD SEVERITY VERIFIED BY PFT 09/28/2022 Influenza Vaccine (FLU shot) (#1) 2022 GFR 03/28/2023 09/25/2022, 05/2022, 12/16/2021, Additional history exists CKD HGB USE SMARTSET 49824 09/26/202309/25, 12/16/2021, 12/09/2021, Additional history exists HbA1c 09/26/2023 09/25/2022, 03/17/2021 O2 ASSESSMENT COMPLETED IN PAST YEAR FOR COPD 09/26/2023 09/25/2022 GARDASIL-HPV IMMUNIZATION SERIES Aged Out No longer eligible based on patient's age to complete this topic Hepatitis B Aged Out No longer eligi ble based on patient's age to complete this topic MENINGOCOCCAL (MENACTRA/MENVEO) Aged Out No longer eligible based on patient's age to complete this topic documented as of this encounter Medical Devices Not on filedocumented as of this encounter Care Teams Shake Maker Relationship Specialty Start Date End Date Geena Dunham, DO [address] [place] [address] PCP - General Family Medicine 02/20/22 documented as of this encounter
--- OUTSIDE RECORDS SUMMARY | 2023-04-14 13:06 | External Medical Summary | Summary of Care ---
Author Name Unknown Organization [facility] Address [address] [place] [address] Phone [phone] Care Team Providers Care Screen Printing Inspector Name Role Phone Charla Geena Nova DA S[place] Primary Care Provider [phone] Encounter Details Date Type Department Care Team (Late st Contact Info) Description 12/28/2022 Telephone Dermatology [facility] [address] [place] [address] Babs Macias MD [address] [facility] [place] [address] Allergies No known active allergiesdocumented as of this encounter (statuses as of 12/28/2022) Medications Medication Sig Dispensed Refills Start Date [...] the morning. 14 Each 10 09/25/2022 Active Metoprolol Succinate ER 25 MG [...] mgIndications:Atopic dermatitis, unspecified type 300 mg SC [id number] 08/07/2022 Active documented as of this encounter (statuses as of 12/28/2022) Active Problems Problem Noted Date Diagnosed Date [...] as of this encounter (statuses as of 12/28/2022) Resolved Problems Problem Noted Date Diagnosed Date [...] as of this encounter (statuses as of 12/28/2022) Social History Tobacco Use Types Packs/Day Years [...] encounter Miscellaneous Notes * Telephone Encounter - Yenny Ac[place] LPN - 12/28/2022 11:32 AM EST Called and scheduled delivery of Dupixent to come to office. Scheduled to come on Dec. documented in this encounter Plan of Treatment Upcoming Encounters Date Type Department Care Team (Late st Contact Info) Description 01/08/2023 11:00 AM EST Nurse Only Dermatology [facility] [address] [place] [address] Sp, Nurse Dermatology [address] 01/22/2023 11:00 AM EST Nurse Only Dermatology [place] [facility] [place] [address] [place] [address] Sp, Nurse Dermatology [address] [place] 02/05/2023 11:00 AM EST Nurse Only Dermatology [facility] [place] [address] [place] [address] Sp, Nurse Dermatology [address] [facility] [place] [address] 02/19/2023 11:00 AM EST Nurse Only Dermatology [facility] [place] [address] [place] [address] Sp, Nurse Dermatology [address] [place] [address] 03/29/2023 11:50 AM EST Office Visit [place] [address] [place] [id number] Geena Dunham [address] [place] [address] Health Maintenance Due Date Last Done Comments DISCUSS TOBACCO CESSATION (REFER TO SMARTSET #8540) 1950 COVID-19 Vaccine (#1) 1948 Pneumococcal Vaccine: 65+ Years (1 - PCV) 1954 Albumin/Creatinine Ratio 1966 Alpha-1 Antitrypsin 1966 CKD PHOS USE SMARTSET 62243 1966 Hepatitis C Screening 1966 Cologuard 1993 Colonoscopy 1993 Colorectal Cancer Screening 1993 Fecal Occult Blood Test 1993 Sigmoidoscopy 1993 LUNG CANCER SCREENING - USE SMARTSET 43743 1998 Zoster Vaccines (1 of 2) 1998 DTaP,Tdap,and Td Vaccines (1 - Tdap) 06/09/1998 06/08/1998 AAA Screening 2013 Depression, Most Recent Score >= 10 (will fire each visit until score < 10) 02/12/2022 02/11/2022 *COPD SEVERITY VERIFIED BY PFT 09/28/2022 Influenza Vaccine (FLU shot) (#1) 2022 GFR 03/28/2023 09/25/2022, 01/0 05/2022, 12/16/2021, Additional history exists CKD HGB USE SMARTSET 05488 09/26/202309/25, 12/16/2021, 12/09/2021, Additional history exists HbA1c [...] filedocumented as of this encounter Care Teams Screen Printing Inspector Relationship Specialty Start Date End Date [facility] Dunham DO [address] [facility] [place] [address] PCP - General Family Medicine 02/20/22 documented as of this encounter
--- OUTSIDE RECORDS SUMMARY | 2023-04-14 13:06 | External Medical Summary | Summary of Care ---
Author Name Unknown Organization [facility] Address [address] [place] [address] Phone [phone] Care Team Providers Care Short Story Writer Name Role Phone JoshuaGeena don Primary Care Provider [phone] Reason for Visit * Reason Comments Follow Up Patient here for Dup ixent 300 mg/2ml injection given in right upper arm. Medication is patient supplied. [facility] 0430-5983-31 Lot [id number] Exp. 09-07-2024 Encounter Details Date Type Department Care Team (Late st Contact Info) Description 12/11/2022 11:00 AM EDT [facility] [address] [facility] [address] Sp, Nurse Dermatology [address] [place], [place] [address] [address] Follow Up (Patient here for Dupixent 300 m... Allergies No known active allergiesdocumented as of this encounter (statuses as of 12/11/2022) Medications Medication Sig Dispensed Refills Start Date [...] mgIndications:Atopic dermatitis, unspecified type 300 mg SC [id number] 08/07/2022 Active documented as of this encounter (statuses as of 12/11/2022) Active Problems Problem Noted Date Diagnosed Date [...] as of this encounter (statuses as of 12/11/2022) Resolved Problems Problem Noted Date Diagnosed Date [...] as of this encounter (statuses as of 12/11/2022) Social History Tobacco Use Types Packs/Day Years [...] on file documented as of this encounter Nursing Notes * Yenny Acosta LPN - 12/11/2022 10:56 AM EDT Chief Complaint Patient presents with Follow Up Patient here for Dupixent 300 mg/2ml injection given in right upper arm. Medication is patient supplied. [facility] 9121-1004-36 Lot [id number] Exp. 09-07-2024 documented in this encounter Plan of Treatment Upcoming Encounters Date Type Department Care Team (Late st Contact Info) Description 12/25/2022 11:00 AM EST Nurse Only Dermatology [address] [place] [address] Sp, Nurse Dermatology [address] [place] [address] 01/08/2023 11:00 AM EST Nurse Only Dermatology [facility] [address] [place] [address] Sp, Nurse Dermatology [address] [place] [address] 01/22/2023 11:00 AM EST Nurse Only Derm[facility] [address] [place] [address] Sp, Nurse Dermatology [address] [place] [address] 02/05/2023 11:00 AM EST Nurse Only Dermatology [facility] [address] [place] [address] Sp, Nurse Dermatology [address] [place] [address] 02/19/2023 11:00 AM EST Nurse Only Dermatology [facility] [address] [place] [address] Sp, Nurse Dermatology [address] [place] [address] 03/29/2023 11:50 AM EST Office Visit [facility] [address] [place] [address] Geena Dunham DO [address] [place] [address] Health Maintenance Due Date Last Done Comments DISCUSS TOBACCO CESSATION (REFER TO SMARTSET #9269) 1950 COVID-19 Vaccine (#1) 1948 Pneumococcal Vaccine: 65+ Years (1 - PCV) 1954 Albumin/Creatinine Ratio 1966 Alpha-1 Antitrypsin 1966 CKD PHOS USE SMARTSET 18538 1966 Hepatitis C Screening 1966 Cologuard 1993 Colonoscopy 1993 Colorectal Cancer Screening 1993 Fecal Occult Blood Test 1993 Sigmoidoscopy 1993 LUNG CANCER SCREENING - USE SMARTSET 49307 1998 Zoster Vaccines (1 of 2) 1998 DTaP,Tdap,and Td Vaccines (1 - Tdap) 06/09/1998 06/08/1998 AAA Screening 2013 Depression, Most Recent Score >= 10 (will fire each visit until score < 10) 02/12/2022 02/11/2022 *COPD SEVERITY VERIFIED BY PFT 09/28/2022 Influenza Vaccine (FLU shot) (#1) 2022 GFR 03/28/2023 09/25/2022, 05/2022, 12/16/2021, Additional history exists CKD HGB USE SMARTSET 94845 09/26/202309/25, 12/16/2021, 12/09/2021, Additional history exists HbA1c [...] filedocumented as of this encounter Care Teams Short Story Writer Relationship Specialty Start Date End Date Geena Dunham DO [address] [place] [address] PCP - General Family Medicine 02/20/22 documented as of this encounter
--- OUTSIDE RECORDS SUMMARY | 2023-04-14 13:06 | External Medical Summary ---
Author Name Unknown Address Unknown Organization K01:[facility] [address] [facility] [address] [place] [address] Laboratory Report Ordering Provider Test Date Status ANA BENAVIDES 03/29/2023 12:36:54 Final Observation Date Value Abnormality Reference (Units ) Status BUN 03/29/2023 12:36:54 13 6-20 (mg/dL) Final Creatinine 03/29/2023 12:36:54 1.3 Above high normal 0.6-1.2 (mg/dL) Final Glomerular filtration rate/1.73 sq M.predicted [Volume Rate/Area] in Serum, Plasma or Blood by Creatinine-based formula (CKD-EPI) 03/29/2023 12:36:54 57 Below low normal >=60 (mL/min) Final eGFR is calculated based on the CKD-EPI 2020 equation SODIUM 03/29/2023 12:36:54 137 135-146 (m mol/L) Final Potassium 03/29/2023 12:36:54 4.6 3.5-5.1 (m mol/L) Final Cl 03/29/2023 12:36:54 99 98-107 (mm ol/L) Final CO2 03/29/2023 12:36:54 26 22-32 (mmo l/L) Final Anion gap 03/29/2023 12:36:54 12 7-15 (mmol /L) Final Glucose 03/29/2023 12:36:54 98 70-120 (mg /dL) Final Calcium 03/29/2023 12:36:54 9.2 8.4-10.2 ( mg/dL) Final Performing Location [facility] [place] [address] [place] [address]
--- OUTSIDE RECORDS SUMMARY | 2023-04-14 13:06 | External Medical Summary | Summary of Care ---
Author Name Unknown Organization [facility] Address [address] [place] [address] Phone [phone] Care Team Providers Care Rubber Moulding Machine Operator Name Role Phone MinaGeena escoto Nova DA SILVA Primary Care Provider [phone] Reason for Visit * Reason Comments Medication Administration Dupixent injec tion Encounter Details Date Type Department Care Team (Late st Contact Info) Description 02/05/2023 11:00 AM EST Nurse Only Dermatology [facility] [address] [place] [address] Sp, Nurse Dermatology [address] [place] [address] [place] [address] Medication Administration (Dupixent inject... Allergies No known active allergiesdocumented as of this encounter (statuses as of 02/05/2023) Medications Medication Sig Dispensed Refills Start Date [...] mgIndications:Atopic dermatitis, unspecified type 300 mg SC [id number] 08/07/2022 Active documented as of this encounter (statuses as of 02/05/2023) Active Problems Problem Noted Date Diagnosed Date [...] as of this encounter (statuses as of 02/05/2023) Resolved Problems Problem Noted Date Diagnosed Date [...] as of this encounter (statuses as of 02/05/2023) Social History Tobacco Use Types Packs/Day Years [...] as of this encounter Nursing Notes * Carin Quiroz MED ASSIST - 02/05/2023 10:54 AM EST Time Out Procedure Performed: Yes Patient Identified (Ask Name/Date of ): Yes Patient allergic to latex? No VFC Stock? No Injection(s) verified: Yes, Injection Name: Dupixent 300mg/2ml prefilled syringe Verified Side and Site: Yes Verified Shot(s) with Parent(s)/Patient: Yes documented in this encounter Plan of Treatment Upcoming Encounters Date Type Department Care Team (Late st Contact Info) Description 02/19/2023 11:00 AM EST Nurse Only Dermatology [place] [address] [place] [address] [place] [address] Sp, Nurse Dermatology [address] [facility] [place] [address] 03/29/2023 11:50 AM EST Office Visit [facility] [address] [place] [address] Geena Dunham DO [address] [place] [address] Health Maintenance Due Date Last Done Comments DISCUSS TOBACCO CESSATION (REFER TO SMARTSET #9402) 1950 COVID-19 Vaccine (#1) 1948 Pneumococcal Vaccine: 65+ Years (1 - PCV) 1954 Albumin/Creatinine Ratio 1966 Alpha-1 Antitrypsin 1966 CKD PHOS USE SMARTSET 01729 1966 Hepatitis C Screening 1966 Cologuard 1993 Colonoscopy 1993 Colorectal Cancer Screening 1993 Fecal Occult Blood Test 1993 Sigmoidoscopy 1993 LUNG CANCER SCREENING - USE SMARTSET 44933 1998 Zoster Vaccines (1 of 2) 1998 DTaP,Tdap,and Td Vaccines (1 - Tdap) 06/09/1998 06/08/1998 AAA Screening 2013 Depression, Most Recent Score >= 10 (will fire each visit until score < 10) 02/12/2022 02/11/2022 *COPD SEVERITY VERIFIED BY PFT 09/28/2022 Influenza Vaccine (FLU shot) (#1) 2022 GFR 03/28/2023 09/25/2022, 01/0 05/2022, 12/16/2021, Additional history exists CKD HGB USE SMARTSET 54714 09/26/202309/25, 12/16/2021, 12/09/2021, Additional history exists HbA1c [...] Not on filedocumented as of this encounter Administered Medications Active Administered Medications - up to 3 most recent administrations Medication Order MAR Action Action Date Dose Rate Site Dupilumab (Dupixent) prefilled syringe 300 mg 300 mg, Subcutaneous, [id number], First dose on Wed08/07/22 at 1230, Until Discontinued Given 02/05/2023 10:52 AM EST 300 mg Deltoid Left Upper documented in this encounter Care Teams Rubber Moulding Machine Operator Relationship Specialty Start Date End Date Geena Dunham DO [address] [place] [address] PCP - General Family Medicine 02/20/22 documented as of this encounter
--- OUTSIDE RECORDS SUMMARY | 2023-04-14 13:06 | External Medical Summary | Summary of Care ---
Author Name Unknown Organization [facility] Address [address] [place] [address] Phone [phone] Care Team Providers Care Sound Cutter Name Role Phone JoshuaGeena don Primary Care Provider [phone] Reason for Visit * Reason Onset Date Comments Appointment 02/19/2023 Dupixent injecti on Encounter Details Date Type Department Care Team (Late st Contact Info) Description 02/19/2023 Telephone Dermatology [facility] [place] [address] [place] [address] Brandt Molina MD 200 [place] [address] Appointment (Dupixent injection) Allergies No known active allergiesdocumented as of this encounter (statuses as of 02/19/2023) Medications Medication Sig Dispensed Refills Start Date [...] mgIndications:Atopic dermatitis, unspecified type 300 mg SC [id number] 08/07/2022 Active documented as of this encounter (statuses as of 02/19/2023) Active Problems Problem Noted Date Diagnosed Date [...] as of this encounter (statuses as of 02/19/2023) Resolved Problems Problem Noted Date Diagnosed Date [...] as of this encounter (statuses as of 02/19/2023) Social History Tobacco Use Types Packs/Day Years [...] encounter Miscellaneous Notes * Telephone Encounter - Carin Quiroz, MED ASSIST - 02/19/2023 11:17 AM EST Attempted to contact patient to remind him of his dupixent injection today. It sounded as though someone picked up the line and then hung it up. When I tried calling back there was no answer. documented in this encounter Plan of Treatment Upcoming Encounters Date Type Department Care Team (Late st Contact Info) Description 03/29/2023 11:50 AM EST [facility] [address] [facility] [address] Geena Dunham, DO [address] [place] [address] Health Maintenance Due Date Last Done Comments DISCUSS TOBACCO CESSATION (REFER TO SMARTSET #1650) 1948 COVID-19 Vaccine (#1) 1948 Pneumococcal Vaccine: 65+ Years (1 - PCV) 1954 Albumin/Creatinine Ratio 1966 Alpha-1 Antitrypsin 1966 CKD PHOS USE SMARTSET 03259 1966 Hepatitis C Screening 1966 Cologuard 1993 Colonoscopy 1993 Colorectal Cancer Screening 1993 Fecal Occult Blood Test 1993 Sigmoidoscopy 1993 LUNG CANCER SCREENING - USE SMARTSET 86020 1998 Zoster Vaccines (1 of 2) 1998 DTaP,Tdap,and Td Vaccines (1 - Tdap) 06/09/1998 06/08/1998 AAA Screening 2013 Depression, Most Recent Score >= 10 (will fire each visit until score < 10) 02/12/2022 02/11/2022 *COPD SEVERITY VERIFIED BY PFT 09/28/2022 Influenza Vaccine (FLU shot) (#1) 2022 GFR 03/28/2023 09/25/2022, 05/2022, 12/16/2021, Additional history exists CKD HGB USE SMARTSET 19719 09/26/202309/25, 12/16/2021, 12/09/2021, Additional history exists HbA1c [...] filedocumented as of this encounter Care Teams Sound Cutter Relationship Specialty Start Date End Date Geena Dunham DO [address] [place] [address] PCP - General Family Medicine 02/20/22 documented as of this encounter
--- OUTSIDE RECORDS SUMMARY | 2023-04-14 13:06 | External Medical Summary | Summary of Care ---
Author Name Unknown Organization [facility] Address [address] [place] [address] Phone [phone] Care Team Providers Care Information Technology Consultant Name Role Phone JoshuaGeena don Primary Care Provider [phone] Reason for Visit * Reason Onset Date Comments Appointment 02/19/2023 Dupixent injecti on Encounter Details Date Type Department Care Team (Late st Contact Info) Description 02/19/2023 Telephone Dermatology [facility] [place] [address] [facility] [place] [address] Brandt Molina MD 200 [place] [address] Appointment (Dupixent injection) Allergies No known active allergiesdocumented as of this encounter (statuses as of 03/22/2023) Medications Medication Sig Dispensed Refills Start Date [...] mgIndications:Atopic dermatitis, unspecified type 300 mg SC [id number] 08/07/2022 Active documented as of this encounter (statuses as of 03/22/2023) Active Problems Problem Noted Date Diagnosed Date [...] as of this encounter (statuses as of 03/22/2023) Resolved Problems Problem Noted Date Diagnosed Date [...] as of this encounter (statuses as of 03/22/2023) Social History Tobacco Use Types Packs/Day Years [...] Description 03/29/2023 11:50 AM EST [facility] [address] [facility] [address] Geena Dunham, DO [address] [place] [address] Health Maintenance Due Date Last Done Comments DISCUSS TOBACCO CESSATION (REFER TO SMARTSET #2065) 1948 COVID-19 Vaccine (#1) 1948 Pneumococcal Vaccine: 65+ Years (1 - PCV) 1954 Albumin/Creatinine Ratio 1966 Alpha-1 Antitrypsin 1966 CKD PHOS USE SMARTSET 06979 1966 Hepatitis C Screening 1966 Cologuard 1993 Colonoscopy 1993 Colorectal Cancer Screening 1993 Fecal Occult Blood Test 1993 Sigmoidoscopy 1993 LUNG CANCER SCREENING - USE SMARTSET 60939 1998 Zoster Vaccines (1 of 2) 1998 DTaP,Tdap,and Td Vaccines (1 - Tdap) 06/09/1998 06/08/1998 AAA Screening 2013 Depression, Most Recent Score >= 10 (will fire each visit until score < 10) 02/12/2022 02/11/2022 *COPD SEVERITY VERIFIED BY PFT 09/28/2022 Influenza Vaccine (FLU shot) (#1) 2022 GFR 03/28/2023 09/25/2022, 05/2022, 12/16/2021, Additional history exists CKD HGB USE SMARTSET 27560 09/26/202309/25, 12/16/2021, 12/09/2021, Additional history exists HbA1c [...] filedocumented as of this encounter Care Teams Information Technology Consultant Relationship Specialty Start Date End Date Geena Dunham DO [address] [place] [address] PCP - General Family Medicine 02/20/22 documented as of this encounter
--- OUTSIDE RECORDS SUMMARY | 2023-04-14 13:06 | External Medical Summary ---
Author Name Unknown Address Unknown Organization K01:[facility] [place] [address] [place] [address] Laboratory Report Ordering Provider Test Date Status ANA BENAVIDES 03/29/2023 12:36:54 Final Observation Date Value Abnormality Reference (Units ) Status HbA1C 03/29/2023 12:36:54 5.8 Above high normal 4. 0-5.6 (%) Final The use of HbA1c to monitor glycemic status is based on normal hemoglobin and HbA composition. This test should not be used in patients with abnormal hemoglobin that affects the half life of the red blood cell or the in vivo glycation rates. Glucose, estimated average 03/29/2023 12:36:54 120 <126 (mg/dL) Final Performing Location [facility] [place] [address] [place] [address]
--- OUTSIDE RECORDS SUMMARY | 2023-04-14 13:06 | External Medical Summary | Summary of Care ---
Author Name Unknown Organization [facility] Address [address] [place] [address] Phone [phone] Care Team Providers Care Brass Bobbin Winder Name Role Phone Geena Dunham Primary Care Provider [phone] Reason for Visit * Reason Comments Follow Up Patient here for his Dupixent 300 mg/2ml injection given in left upper arm. Patient tolerated well. [facility] [id number] Lot #[id number] Exp. 09-07-2024 Encounter Details Date Type Department Care Team (Late st Contact Info) Description 12/25/2022 11:00 AM EST Nurse Only Dermatology [facility] [address] [place] [address] Sp, Nurse Dermatology [address] [place], [place] [address] [address] Follow Up (Patient here for his Dupixent 3... Allergies No known active allergiesdocumented as of this encounter (statuses as of 12/25/2022) Medications Medication Sig Dispensed Refills Start Date [...] mgIndications:Atopic dermatitis, unspecified type 300 mg SC [id number] 08/07/2022 Active documented as of this encounter (statuses as of 12/25/2022) Active Problems Problem Noted Date Diagnosed Date [...] as of this encounter (statuses as of 12/25/2022) Resolved Problems Problem Noted Date Diagnosed Date [...] as of this encounter (statuses as of 12/25/2022) Social History Tobacco Use Types Packs/Day Years [...] Nursing Notes * Yenny Acosta LPN - 12/25/2022 11:10 AM EST Chief Complaint Patient presents with Follow Up Patient here for his Dupixent 300 mg/2ml injection given in left upper arm. Patient tolerated well.[facility] [id number] Lot #[id number] Exp. 09-07-2024 documented in this encounter Plan of Treatment Upcoming Encounters Date Type Department Care Team (Late st Contact Info) Description 01/08/2023 11:00 AM EST Nurse Only Dermatology [facility] [place] [address] [place] [address] Sp, Nurse Dermatology [address] [place] [address] 01/22/2023 11:00 AM EST [facility] [place] [address] [place], [place] [address] Sp, Nurse Dermatology [address] [place] [address] 02/05/2023 11:00 AM EST Nurse Only Dermatology [facility] [place] [address] [place] [address] Sp, Nurse Dermatology [address] [place] [address] 02/19/2023 11:00 AM EST Nurse Only Dermatology [facility] [place] [address] [place], [place] [address] Sp, Nurse Dermatology [address] [place], [place] [address] 03/29/2023 11:50 AM EST Office Visit [facility] [address] [place] [address] Geena Dunham, [address] [place] [address] Health Maintenance Due Date Last Done Comments DISCUSS TOBACCO CESSATION (REFER TO SMARTSET #7171) 1948 COVID-19 Vaccine (#1) 1948 Pneumococcal Vaccine: 65+ Years (1 - PCV) 1954 Albumin/Creatinine Ratio 1966 Alpha-1 Antitrypsin 1966 CKD PHOS USE SMARTSET 48029 1966 Hepatitis C Screening 1966 Cologuard 1993 Colonoscopy 1993 Colorectal Cancer Screening 1993 Fecal Occult Blood Test 1993 Sigmoidoscopy 1993 LUNG CANCER SCREENING - USE SMARTSET 69642 1998 Zoster Vaccines (1 of 2) 1998 DTaP,Tdap,and Td Vaccines (1 - Tdap) 06/09/1998 06/08/1998 AAA Screening 2013 Depression, Most Recent Score >= 10 (will fire each visit until score < 10) 02/12/2022 02/11/2022 *COPD SEVERITY VERIFIED BY PFT 09/28/2022 Influenza Vaccine (FLU shot) (#1) 2022 GFR 03/28/2023 09/25/2022, 05/2022, 12/16/2021, Additional history exists CKD HGB USE SMARTSET 47089 09/26/202309/25, 12/16/2021, 12/09/2021, Additional history exists HbA1c [...] filedocumented as of this encounter Care Teams Brass Bobbin Winder Relationship Specialty Start Date End Date Geena Dunham DO [address] [place] [address] PCP - General Family Medicine 02/20/22 documented as of this encounter
--- OUTSIDE RECORDS SUMMARY | 2023-04-14 13:06 | External Medical Summary | Summary of Care ---
Author Name Unknown Organization [facility] Address [address] [place] [address] Phone [phone] Care Team Providers Care Lens Molder Name Role Phone Geena Dunham DO Primary Care Provider Reason for Visit * Reason Onset Date Comments Information 11/10/2022 AAA screening Encounter Details Date Type Department Care Team Description 11/10/2022 Telephone [facility] [address] [place] [address] Geena Dunham DO [address] [place] [address] Information (AAA screening ) Allergies No known active allergiesdocumented as of this encounter (statuses as of 11/17/2022) Medications Medication Sig Dispensed Refills Start Date [...] (HCC) Use to inhaler medications 1 Kit 09/06/2018 Active Additional Information Patient not taking.Reported [...] mgIndications:Atopic dermatitis, unspecified type 300 mg SC [id number] 08/07/2022 Active documented as of this encounter (statuses as of 11/17/2022) Active Problems Problem Noted Date COPD, moderate [...] as of this encounter (statuses as of 11/17/2022) Resolved Problems Problem Noted Date Resolved Date [...] as of this encounter (statuses as of 11/17/2022) Social History Tobacco Use Types Packs/Day Years [...] encounter Miscellaneous Notes * Telephone Encounter - Alexandra Beck LPN - 11/17/2022 9:50 AM EDT Through advanced analysis/trending of this patient's history, they have been identified to have a positive AAA flag and are at a higher risk for Abdominal aortic aneurysm. This advanced analysis estimates the patient's risk for AAA. It only indicates that the patient's chances to have this condition are higher compared to most people. It does not indicate that the patient has this condition, but it is highly recommended the patient have a AAA screening for further evaluation. I have contacted the patient regarding scheduling a AAA screening. Outcomes: Unable to contact after 3 telephone attempts. Letter sent. * Telephone Encounter - Alexandra Beck LPN - 11/16/2022 10:44 AM EDT Through advanced analysis/trending of this patient's history, they have been identified to have a positive AAA flag and are at a higher risk for Abdominal aortic aneurysm. This advanced analysis estimates the patient's risk for AAA. It only indicates that the patient's chances to have this condition are higher compared to most people. It does not indicate that the patient has this condition, but it is highly recommended the patient have a AAA screening for further evaluation. I have contacted the patient regarding scheduling a AAA screening. Outcomes: Unable to contact * Telephone Encounter - Alexandra Beck LPN - 11/12/2022 9:41 AM EDT I am calling to discuss some recommended testing. Our records indicate that you are due for a screening ultrasound of your aorta (this test checks for an enlargement of your aorta at the level of your abdomen). Have you had discussions with your provider about this?we've recently started evaluating your electronic health record to provide better screening and care for people at risk for disease of the aorta (the main artery that carries blood from your heart to the rest of your body). Based on your laboratory results and other clinical conditions, you may be at high risk for an abdominal aortic aneurysm (AAA, an enlargement of your lower aorta). This evaluation doesn't mean you have an AAA. It just means you should get screened at your earliest convenience by having an ultrasound. The screening results will tell your doctor if there's anything they need to examine more closely. Through advanced analysis/trending of this patient's history, they have been identified to have a positive AAA flag and are at a higher risk for Abdominal aortic aneurysm. This advanced analysis estimates the patient's risk for AAA. It only indicates that the patient's chances to have this condition are higher compared to most people. It does not indicate that the patient has this condition, but it is highly recommended the patient have a AAA screening for further evaluation. I have contacted the patient regarding scheduling a AAA screening. Outcomes: Unable to contact No answer * Telephone Encounter - Alexandra Beck LPN - 11/10/2022 10:31 AM EDT Through advanced analysis/trending of this patient's history, they have been identified to have a positive AAA flag and are at a higher risk for Abdominal aortic aneurysm. [facility] to discuss AAA screening. documented in this encounter Plan of Treatment Upcoming Encounters Date Type Specialty Care Team Description 11/27/2022 Nurse Only Dermatology Sp, Nurse Dermatology [address] [facility], [place] [id number] 12/11/2022 Nurse Only Dermatology Sp, Nurse Dermatology [address] [facility], [place] [id number] 12/25/2022 Nurse Only Dermatology Sp, Nurse Dermatology [address] [place] [place] [address] 01/08/2023 Nurse Only Dermatology Sp, Nurse Dermatology [address] [facility] [place] [address] 01/22/2023 Nurse Only Dermatology Sp, Nurse Dermatology [address] [facility] [place] [address] 02/05/2023 Nurse Only Dermatology Sp, Nurse Dermatology [address] [facility], [place] [id number] 02/19/2023 Nurse Only Dermatology Sp, Nurse Dermatology [address] [facility], [place] [id number] 03/29/2023 Office Visit Family Medicine Geena Dunham, DO [address] [place] [address] Health Maintenance Due Date Last Done Comments DISCUSS TOBACCO CESSATION (REFER TO SMARTSET #0479) 1948 COVID-19 Vaccine (#1) 1948 Pneumococcal Vaccine: 65+ Years (1 - PCV) 1954 Albumin/Creatinine Ratio 1966 Alpha-1 Antitrypsin 1966 CKD PHOS USE SMARTSET 70861 1966 Hepatitis C Screening 1966 Cologuard 1993 Colonoscopy 1993 Colorectal Cancer Screening 1993 Fecal Occult Blood Test 1993 Sigmoidoscopy 1993 LUNG CANCER SCREENING - USE SMARTSET 43250 1998 Zoster Vaccines (1 of 2) 1998 DTaP,Tdap,and Td Vaccines (1 - Tdap) 06/09/1998 06/08/1998 AAA Screening 2013 Depression, Most Recent Score >= 10 (will fire each visit until score < 10) 02/12/2022 02/11/2022 *COPD SEVERITY VERIFIED BY PFT 09/28/2022 Influenza Vaccine (FLU shot) (#1) 2022 GFR 03/28/2023 09/25/2022, 05/2022, 12/16/2021, Additional history exists CKD HGB USE SMARTSET 90929 09/26/202309/25, 12/16/2021, 12/09/2021, Additional history exists HbA1c [...] filedocumented as of this encounter Care Teams Lens Molder Relationship Specialty Start Date End Date Geena Dunham, [address] [place], [place] [phone] PCP - General Family Medicine 02/20/22 documented as of this encounter
--- OUTSIDE RECORDS SUMMARY | 2023-04-14 13:06 | External Medical Summary | Summary of Care ---
Author Name Unknown Organization [facility] Address [address] [place] [address] Phone [phone] Care Team Providers Care Basketball Assembler Name Role Phone JoshuaGeena don Primary Care Provider [phone] Reason for Visit * Reason Comments Outpatient Testing Encounter Details Date Type Department Care Team ([facility] st Contact Info) Description 03/29/2023 12:40 PM EST Laboratory Laboratory, [place] [address] [place] [address] [place] [address] [place] [address] Prediabetes; Chronic kidney disease, stage 3a (HCC) Allergies No known active allergiesdocumented as of this encounter (statuses as of 03/29/2023) Medications Medication Sig Dispensed Refills Start Date End Date Status aspirin enteric coated (ECOTRIN LOW STRENGTH) 81 MG TBECIndications:ASCV D (arteriosclerotic cardiovascular disease),Old myocardial infarct Take 1 Tab by mouth daily. 100 Tab 5 07/28/2016 Active Nebulizers (NEBULIZER COMPRESSOR) MISCIndications:Inte rstitial lung disease [...] 03/29/2023 Escitalopram Oxalate 10 MG Oral Tablet (Lexapro)Indications [...] before bedtime. 60 Tablet 5 03/29/2023 Active Hospital, Clinic, or Other Facility Administered Medication Ordered Dose Route Frequency Start Date End Date Status albuterol (PROVENTIL HFA) inhaler 4 PuffIndications:Chronic cough 4 Puff IN ONCE PRN 09/05/2017 Active Dupilumab (Dupixent) prefilled syringe 300 mgIndications:Atopic dermatitis, unspecified type 300 mg SC [id number] 08/07/2022 Active documented as of this encounter [...] on file documented as of this encounter Plan of Treatment Upcoming Encounters Date Type Department Care Team (Late st Contact Info) Description 10/06/2023 12:10 PM EDT Office Visit [facility] [address] [place] [facility] [place] [id number] [facility] [address] [facility] [id number] Pending Results Name Type Priority Associated Diagnoses Date /Time HEMOGLOBIN A1C Lab Routine Prediabetes 03/29/2023 12:36 PM EST BASIC METABOLIC PANEL Lab Routine Chronic kidney disease, stage 3a (HCC) 03/29/2023 12:36 PM EST Health Maintenance Due Date Last Done Comments DISCUSS TOBACCO CESSATION (REFER TO SMARTSET #2850) 1950 Pneumococcal Vaccine: 65+ Years (1 of 2 - PCV) 1954 Albumin/Creatinine Ratio 1966 Alpha-1 Antitrypsin 1966 CKD PHOS USE SMARTSET 96210 1966 Hepatitis C Screening 1966 Cologuard 1993 Colonoscopy 1993 Colorectal Cancer Screening 1993 Fecal Occult Blood Test 1993 Sigmoidoscopy 1993 LUNG CANCER SCREENING - USE SMARTSET 88029 1998 Zoster Vaccines (1 of 2) 1998 DTaP,Tdap,and Td Vaccines (1 - Tdap) 06/09/1998 06/08/1998 AAA Screening 2013 Depression, Most Recent Score >= 10 (will fire each visit until score < 10) 02/12/2022 02/11/2022 *COPD SEVERITY VERIFIED BY PFT 09/28/2022 COVID-19 Vaccine ( - season) 2022 Influenza Vaccine (FLU shot) (#1) 2022 GFR 03/28/2023 09/25/2022, 0 05/2022, 12/16/2021, Additional history exists CKD HGB USE SMARTSET 08855 09/26/202309/25, 12/16/2021, 12/09/2021, Additional history exists HbA1c [...] as of this encounter Visit Diagnoses Diagnosis Prediabetes Other abnormal glucose Chronic kidney disease, stage 3a (HCC) documented in this encounter Care Teams Basketball Assembler Relationship Specialty Start Date End Date Geena Dunham DO [address] [place] [address] PCP - General Family Medicine 02/20/22 documented as of this encounter
--- OUTSIDE RECORDS SUMMARY | 2023-04-14 13:06 | External Medical Summary | Summary of Care ---
Author Name Unknown Organization [facility] Address [address] [place] [address] Phone [phone] Care Team Providers Care Assistant Secretary Name Role Phone Charla Geena Nova DA SILVA Primary Care Provider Encounter Details Date Type Department Care Team (Late st Contact Info) Description 01/22/2023 Telephone Dermatology [facility] [address] [facility] [place] [address] Babs Macias MD [address] [place] [address] Allergies No known active allergiesdocumented as of this encounter (statuses as of 01/22/2023) Medications Medication Sig Dispensed Refills Start Date [...] mgIndications:Atopic dermatitis, unspecified type 300 mg SC [id number] 08/07/2022 Active documented as of this encounter (statuses as of 01/22/2023) Active Problems Problem Noted Date Diagnosed Date [...] as of this encounter (statuses as of 01/22/2023) Resolved Problems Problem Noted Date Diagnosed Date [...] as of this encounter (statuses as of 01/22/2023) Social History Tobacco Use Types Packs/Day Years [...] Telephone Encounter - Yenny Acosta LPN - 01/22/2023 1:16 PM EST Called patient to notify him that he again missed his scheduled appointment for his Dupixent injection. Missed last appointment also. Said he has a cold and can't come in. Asked him if he wants to try to come in next week a day and he said "we"ll see how it goes". documented in this encounter Plan of Treatment Upcoming Encounters Date Type Department Care Team (Late st Contact Info) Description 02/05/2023 11:00 AM EST Nurse Only Dermatology [facility] [address] [place] [address] Sp, Nurse Dermatology [address] [place] [address] 02/19/2023 11:00 AM EST Nurse Only Dermatology [facility] [place] [address] [place], [place] [address] Sp, Nurse Dermatology [address] [facility] [place], [place] [address] 03/29/2023 11:50 AM EST Office Visit [facility] [address] [place] [address] Geena Dunham, [address] [place] [address] Health Maintenance Due Date Last Done Comments DISCUSS TOBACCO CESSATION (REFER TO SMARTSET #5360) 1950 COVID-19 Vaccine (#1) 1948 Pneumococcal Vaccine: 65+ Years (1 - PCV) 1954 Albumin/Creatinine Ratio 1966 Alpha-1 Antitrypsin 1966 CKD PHOS USE SMARTSET 21219 1966 Hepatitis C Screening 1966 Cologuard 1993 Colonoscopy 1993 Colorectal Cancer Screening 1993 Fecal Occult Blood Test 1993 Sigmoidoscopy 1993 LUNG CANCER SCREENING - USE SMARTSET 32757 1998 Zoster Vaccines (1 of 2) 1998 DTaP,Tdap,and Td Vaccines (1 - Tdap) 06/09/1998 06/08/1998 AAA Screening 2013 Depression, Most Recent Score >= 10 (will fire each visit until score < 10) 02/12/2022 02/11/2022 *COPD SEVERITY VERIFIED BY PFT 09/28/2022 Influenza Vaccine (FLU shot) (#1) 2022 GFR 03/28/2023 09/25/2022, 05/2022, 12/16/2021, Additional history exists CKD HGB USE SMARTSET 86556 09/26/202309/25, 12/16/2021, 12/09/2021, Additional history exists HbA1c [...] filedocumented as of this encounter Care Teams Assistant Secretary Relationship Specialty Start Date End Date Geena Dunham DO [address] [facility] [place] [address] PCP - General Family Medicine 02/20/22 documented as of this encounter
--- OUTSIDE RECORDS SUMMARY | 2023-04-14 13:07 | External Medical Summary | Summary of Care ---
Author Name Unknown Organization [facility] Address [address] [facility] [place] [address] Phone [phone] Care Team Providers Care Head Cager Name Role Phone Geena Dunham DO Primary Care Provider [phone] Reason for Visit * Reason Comments Follow Up Patient here for Dup ixent 300 mg/2ml injection given in left posterior upper arm. [facility] 9848-5072-86 Lot #[id number] Exp. 09-07-2024 Encounter Details Date Type Department Care Team Description 11/13/2022 Nurse Only Dermatology [facility] [place] [address] [facility] [place] [address] Sp, Nurse Dermatology [address] [facility] [place] [address] Follow Up (Patient here for Dupixent 300 m... Allergies No known active allergiesdocumented as of this encounter (statuses as of 11/13/2022) Medications Medication Sig Dispensed Refills Start Date [...] mgIndications:Atopic dermatitis, unspecified type 300 mg SC [id number] 08/07/2022 Active documented as of this encounter (statuses as of 11/13/2022) Active Problems Problem Noted Date COPD, moderate [...] as of this encounter (statuses as of 11/13/2022) Resolved Problems Problem Noted Date Resolved Date [...] as of this encounter (statuses as of 11/13/2022) Social History Tobacco Use Types Packs/Day Years [...] Nursing Notes * Yenny Acosta LPN - 11/13/2022 10:59 AM EDT Chief Complaint Patient presents with Follow Up Patient here for Dupixent 300 mg/2ml injection given in left posterior upper arm. [facility] 7612-2694-63 Lot #[id number] Exp. 09-07-2024 documented in this encounter Plan of Treatment Upcoming Encounters Date Type Specialty Care Team Description 11/27/2022 Nurse Only Dermatology Sp, Nurse Dermatology [address] [place] [id number] 12/11/2022 Nurse Only Dermatology Sp, Nurse Dermatology [address] [place] [id number] 12/25/2022 Nurse Only Dermatology Sp, Nurse Dermatology [address] [place] [address] 01/08/2023 Nurse Only Dermatology Sp, Nurse Dermatology [address] [place] [address] 01/22/2023 Nurse Only Dermatology Sp, Nurse Dermatology [address] [place] [address] 02/05/2023 Nurse Only Dermatology Sp, Nurse Dermatology [address] [place] [address] 02/19/2023 Nurse Only Dermatology Sp, Nurse Dermatology [address] [place] [address] 03/29/2023 Office Visit Family Medicine Geena Dunham, [address] [place] [address] [phone] Health Maintenance Due Date Last Done Comments DISCUSS TOBACCO CESSATION (REFER TO SMARTSET #0087) 1948 COVID-19 Vaccine (#1) 1948 Pneumococcal Vaccine: 65+ Years (1 - PCV) 1954 Albumin/Creatinine Ratio 1966 Alpha-1 Antitrypsin 1966 CKD PHOS USE SMARTSET 39755 1966 Hepatitis C Screening 1966 Cologuard 1993 Colonoscopy 1993 Colorectal Cancer Screening 1993 Fecal Occult Blood Test 1993 Sigmoidoscopy 1993 LUNG CANCER SCREENING - USE SMARTSET 22132 1998 Zoster Vaccines (1 of 2) 1998 DTaP,Tdap,and Td Vaccines (1 - Tdap) 06/09/1998 06/08/1998 AAA Screening 2013 Depression, Most Recent Score >= 10 (will fire each visit until score < 10) 02/12/2022 02/11/2022 *COPD SEVERITY VERIFIED BY PFT 09/28/2022 Influenza Vaccine (FLU shot) (#1) 2022 GFR 03/28/2023 09/25/2022, 01/0 05/2022, 12/16/2021, Additional history exists CKD HGB USE SMARTSET 00287 09/26/202309/25, 12/16/2021, 12/09/2021, Additional history exists HbA1c [...] filedocumented as of this encounter Care Teams Head Cager Relationship Specialty Start Date End Date Geena Dunham, DO [address] [place] [address] PCP - General Family Medicine 02/20/22 documented as of this encounter
--- OUTSIDE RECORDS SUMMARY | 2023-04-14 13:07 | External Medical Summary | Summary of Care ---
Author Name Unknown Organization [facility] Address [address] [place] [address] Phone [phone] Care Team Providers Care Clinical Pharmacy Specialist Name Role Phone Geena Dunham DO Primary Care Provider [phone] Encounter Details Date Type Department Care Team Description 11/10/2022 External Data Patient Risk Medial Allergies No known active allergiesdocumented as of this encounter (statuses as of 11/10/2022) Medications Medication Sig Dispensed Refills Start Date [...] mgIndications:Atopic dermatitis, unspecified type 300 mg SC [id number] 08/07/2022 Active documented as of this encounter (statuses as of 11/10/2022) Active Problems Problem Noted Date COPD, moderate [...] as of this encounter (statuses as of 11/10/2022) Resolved Problems Problem Noted Date Resolved Date [...] as of this encounter (statuses as of 11/10/2022) Social History Tobacco Use Types Packs/Day Years [...] Encounters Date Type Specialty Care Team Description 11/13/2022 Nurse Only Dermatology Sp, Nurse Dermatology [address] [place] [address] 11/27/2022 Nurse Only Dermatology Sp, Nurse Dermatology 200 [place] [address] 12/11/2022 Nurse Only Dermatology Sp, Nurse Dermatology 200 [place] [address] 03/29/2023 Office Visit Family Medicine Geena Dunham DO [address] [place] [address] Health Maintenance Due Date Last Done Comments DISCUSS TOBACCO CESSATION (REFER TO SMARTSET #8886) 1948 COVID-19 Vaccine (#1) 1948 Pneumococcal Vaccine: 65+ Years (1 - PCV) 1954 Albumin/Creatinine Ratio 1966 Alpha-1 Antitrypsin 1966 CKD PHOS USE SMARTSET 25846 1966 Hepatitis C Screening 1966 Cologuard 1993 Colonoscopy 1993 Colorectal Cancer Screening 1993 Fecal Occult Blood Test 1993 Sigmoidoscopy 1993 LUNG CANCER SCREENING - USE SMARTSET 11432 1998 Zoster Vaccines (1 of 2) 1998 DTaP,Tdap,and Td Vaccines (1 - Tdap) 06/09/1998 06/08/1998 AAA Screening 2013 Depression, Most Recent Score >= 10 (will fire each visit until score < 10) 02/12/2022 02/11/2022 *COPD SEVERITY VERIFIED BY PFT 09/28/2022 Influenza Vaccine (FLU shot) (#1) 2022 GFR 03/28/2023 09/25/2022, 0 05/2022, 12/16/2021, Additional history exists CKD HGB USE SMARTSET 59999 09/26/202309/25, 12/16/2021, 12/09/2021, Additional history exists HbA1c [...] filedocumented as of this encounter Care Teams Clinical Pharmacy Specialist Relationship Specialty Start Date End Date Geena Dunham, [address] [place] [address] PCP - General Family Medicine 02/20/22 documented as of this encounter
--- OUTSIDE RECORDS SUMMARY | 2023-04-14 13:07 | External Medical Summary | Summary of Care ---
Author Name Unknown Organization [facility] Address [address] [place] [address] Phone [phone] Care Team Providers Care Automation Mechanic Name Role Phone Geena Dunham DO Primary Care Provider Encounter Details Date Type Department Care Team Description 10/30/2022 Telephone Dermatology [facility] 200 [facility] [place] [address] Babs Macias MD [address] [place] [facility] [place] [address] Allergies No known active allergiesdocumented as of this encounter (statuses as of 10/30/2022) Medications Medication Sig Dispensed Refills Start Date [...] mgIndications:Atopic dermatitis, unspecified type 300 mg SC [id number] 08/07/2022 Active documented as of this encounter (statuses as of 10/30/2022) Active Problems Problem Noted Date COPD, moderate [...] as of this encounter (statuses as of 10/30/2022) Resolved Problems Problem Noted Date Resolved Date [...] as of this encounter (statuses as of 10/30/2022) Social History Tobacco Use Types Packs/Day Years [...] Telephone Encounter - Yenny Acosta LPN - 10/30/2022 10:07 AM EDT Called [employer] to order Dupixent for delivery to office. 3 month supply will be shipped out next week for delivery on the . documented in this encounter Plan of Treatment Upcoming Encounters Date Type Specialty Care Team Description 10/30/2022 Nurse Only Dermatology Sp, Nurse Dermatology [address] [place] [address] 11/13/2022 Nurse Only Dermatology Sp, Nurse Dermatology [address] [place], [place] [address] 11/27/2022 Nurse Only Dermatology Sp, Nurse Dermatology [address] [place], [place] [address] 12/11/2022 Nurse Only Dermatology Sp, Nurse Dermatology [address] [place] [address] 03/29/2023 Office Visit Family Medicine Geena Dunham, DO [address] [place] [address] Health Maintenance Due Date Last Done Comments DISCUSS TOBACCO CESSATION (REFER TO SMARTSET #3098) 1948 COVID-19 Vaccine (#1) 1948 Pneumococcal Vaccine: 65+ Years (1 - PCV) 1954 Albumin/Creatinine Ratio 1966 Alpha-1 Antitrypsin 1966 CKD PHOS USE SMARTSET 12647 1966 Hepatitis C Screening 1966 Cologuard 1993 Colonoscopy 1993 Colorectal Cancer Screening 1993 Fecal Occult Blood Test 1993 Sigmoidoscopy 1993 LUNG CANCER SCREENING - USE SMARTSET 79713 1998 Zoster Vaccines (1 of 2) 1998 DTaP,Tdap,and Td Vaccines (1 - Tdap) 06/09/1998 06/08/1998 AAA Screening 2013 Depression, Most Recent Score >= 10 (will fire each visit until score < 10) 02/12/2022 02/11/2022 *COPD SEVERITY VERIFIED BY PFT 09/28/2022 Influenza Vaccine (FLU shot) (#1) 2022 GFR 03/28/2023 09/25/2022, 05/2022, 12/16/2021, Additional history exists CKD HGB USE SMARTSET 63492 09/26/202309/25, 12/16/2021, 12/09/2021, Additional history exists HbA1c [...] filedocumented as of this encounter Care Teams Automation Mechanic Relationship Specialty Start Date End Date Geena Dunham, [address] [place] [address] PCP - General Family Medicine 02/20/22 documented as of this encounter
--- OUTSIDE RECORDS SUMMARY | 2023-04-14 13:07 | External Medical Summary | Summary of Care ---
Author Name Unknown Organization [facility] Address [address] [place] [address] Phone [phone] Care Team Providers Care District Manager In Training Name Role Phone Geena Dunham DO Primary Care Provider [phone] Reason for Visit * Reason Comments Other Pt here for dupixent inj. Encounter Details Date Type Department Care Team Description 10/16/2022 Nurse Only Dermatology [facility] 200 [facility] [place] [address] Sp, [facility] [address] Other (Pt here for dupixent inj.) Allergies No known active allergiesdocumented as of this encounter (statuses as of 10/16/2022) Medications Medication Sig Dispensed Refills Start Date [...] mgIndications:Atopic dermatitis, unspecified type 300 mg SC [id number] 08/07/2022 Active documented as of this encounter (statuses as of 10/16/2022) Active Problems Problem Noted Date COPD, moderate [...] as of this encounter (statuses as of 10/16/2022) Resolved Problems Problem Noted Date Resolved Date [...] as of this encounter (statuses as of 10/16/2022) Social History Tobacco Use Types Packs/Day Years [...] as of this encounter Nursing Notes * Michelle Ruvalcaba LPN - 10/16/2022 10:33 AM EDT Sub q Injection given per order. Patients own medication. Dupixent 5832-1107-68 [facility] [id number] lot 06/07/24 exp documented in this encounter Plan of Treatment Upcoming Encounters Date Type Specialty Care Team Description 10/30/2022 Nurse Only Dermatology Sp, Nurse Dermatology [address] [facility] [place] [address] 11/13/2022 Nurse Only Dermatology Sp, Nurse Dermatology 200 [facility] [place] [address] 11/27/2022 Nurse Only Dermatology Sp, Nurse Dermatology [address] [facility] [place] [address] 12/11/2022 Nurse Only Dermatology Sp, Nurse Dermatology [address] [facility] [place] [address] 03/29/2023 Office Visit Family Medicine Geena Dunham, DO [address] [place] [address] Health Maintenance Due Date Last Done Comments DISCUSS TOBACCO CESSATION (REFER TO SMARTSET #8141) 1948 COVID-19 Vaccine (#1) 1948 Pneumococcal Vaccine: 65+ Years (1 - PCV) 1954 Albumin/Creatinine Ratio 1966 Alpha-1 Antitrypsin 1966 CKD PHOS USE SMARTSET 50835 1966 Hepatitis C Screening 1966 Cologuard 1993 Colonoscopy 1993 Colorectal Cancer Screening 1993 Fecal Occult Blood Test 1993 Sigmoidoscopy 1993 LUNG CANCER SCREENING - USE SMARTSET 98699 1998 Zoster Vaccines (1 of 2) 1998 DTaP,Tdap,and Td Vaccines (1 - Tdap) 06/09/1998 06/08/1998 AAA Screening 2013 Depression, Most Recent Score >= 10 (will fire each visit until score < 10) 02/12/2022 02/11/2022 *COPD SEVERITY VERIFIED BY PFT 09/28/2022 Influenza Vaccine (FLU shot) (#1) 2022 GFR 03/28/2023 09/25/2022, 05/2022, 12/16/2021, Additional history exists CKD HGB USE SMARTSET 76317 09/26/202309/25, 12/16/2021, 12/09/2021, Additional history exists HbA1c [...] filedocumented as of this encounter Care Teams District Manager In Training Relationship Specialty Start Date End Date Geena Dunham, DO [address] [facility] [place] [phone] PCP - General Family Medicine 02/20/22 documented as of this encounter
--- OUTSIDE RECORDS SUMMARY | 2023-04-14 13:07 | External Medical Summary | Summary of Care ---
Author Name Unknown Organization [facility] Address [address] [place] [place] [address] Phone [phone] Care Team Providers Care Fiscal Clerk Name Role Phone Geena Dunham Primary Care Provider [phone] Reason for Visit * Reason Comments Follow Up Patient here for Dup ixent 300 mg/2ml injection, given in right upper posterior arm. [facility] 9382-1642-36, Lot [id number], Exp. 08-07-2024 Encounter Details Date Type Department Care Team Description 10/30/2022 Nurse Only Dermatology [facility] [place] 200 [facility] [place] [address] Sp, Nurse Dermatology 200 [facility] [place] [address] Follow Up (Patient here for Dupixent 300 [...] mgIndications:Atopic dermatitis, unspecified type 300 mg SC [id number] 08/07/2022 Active documented as of this encounter [...] Nurse Only Dermatology Sp, Nurse Dermatology 200 [place] [address] 11/27/2022 Nurse Only Dermatology Sp, Nurse Dermatology 200 [place] [address] 12/11/2022 Nurse Only Dermatology Sp, Nurse Dermatology 200 [place] [address] 03/29/2023 Office Visit Family Medicine Geena Dunham DO [address] [place] [address] Health Maintenance Due Date Last Done Comments DISCUSS TOBACCO CESSATION (REFER TO SMARTSET #3291) 1948 COVID-19 Vaccine (#1) 1948 Pneumococcal Vaccine: 65+ Years (1 - PCV) 1954 Albumin/Creatinine Ratio 1966 Alpha-1 Antitrypsin 1966 CKD PHOS USE SMARTSET 45640 1966 Hepatitis C Screening 1966 Cologuard 1993 Colonoscopy 1993 Colorectal Cancer Screening 1993 Fecal Occult Blood Test 1993 Sigmoidoscopy 1993 LUNG CANCER SCREENING - USE SMARTSET 79950 1998 Zoster Vaccines (1 of 2) 1998 DTaP,Tdap,and Td Vaccines (1 - Tdap) 06/09/1998 06/08/1998 AAA Screening 2013 Depression, Most Recent Score >= 10 (will fire each visit until score < 10) 02/12/2022 02/11/2022 *COPD SEVERITY VERIFIED BY PFT 09/28/2022 Influenza Vaccine (FLU shot) (#1) 2022 GFR 03/28/2023 09/25/2022, /0 05/2022, 12/16/2021, Additional history exists CKD HGB USE SMARTSET 34078 09/26/202309/25, 12/16/2021, 12/09/2021, Additional history exists HbA1c [...] filedocumented as of this encounter Care Teams Fiscal Clerk Relationship Specialty Start Date End Date Geena Dunham, DO [address] [place] [address] PCP - General Family Medicine 02/20/22 documented as of this encounter
--- OUTSIDE RECORDS SUMMARY | 2023-04-14 13:07 | External Medical Summary | Summary of Care ---
Author Name Unknown Organization [facility] Address [address] [place] [facility] [place] [place] [address] Phone [phone] Care Team Providers Care Global Chief Creative Officer Name Role Phone Geena Dunham Primary Care Provider [phone] Reason for Visit * Reason Comments Follow Up Patient here for Dup ixent 300 mg/2ml injection, given in right upper posterior arm. [facility] 4119-8013-44, Lot [id number], Exp. 08-07-2024 Encounter Details Date Type Department Care Team Description 10/30/2022 Nurse Only Dermatology [facility] [place] 200 [facility] [place] [address] Sp, Nurse Dermatology 200 [facility] [place] [address] Follow Up (Patient here for Dupixent 300 [...] mgIndications:Atopic dermatitis, unspecified type 300 mg SC [id number] 08/07/2022 Active documented as of this encounter [...] Nurse Only Dermatology Sp, Nurse Dermatology 200 [place] [address] 11/27/2022 Nurse Only Dermatology Sp, Nurse Dermatology 200 [place] [address] 12/11/2022 Nurse Only Dermatology Sp, Nurse Dermatology 200 [place] [address] 03/29/2023 Office Visit Family Medicine Geena Dunham DO [address] [place] [address] Health Maintenance Due Date Last Done Comments DISCUSS TOBACCO CESSATION (REFER TO SMARTSET #3291) 1948 COVID-19 Vaccine (#1) 1948 Pneumococcal Vaccine: 65+ Years (1 - PCV) 1954 Albumin/Creatinine Ratio 1966 Alpha-1 Antitrypsin 1966 CKD PHOS USE SMARTSET 07537 1966 Hepatitis C Screening 1966 Cologuard 1993 Colonoscopy 1993 Colorectal Cancer Screening 1993 Fecal Occult Blood Test 1993 Sigmoidoscopy 1993 LUNG CANCER SCREENING - USE SMARTSET 20080 1998 Zoster Vaccines (1 of 2) 1998 DTaP,Tdap,and Td Vaccines (1 - Tdap) 06/09/1998 06/08/1998 AAA Screening 2013 Depression, Most Recent Score >= 10 (will fire each visit until score < 10) 02/12/2022 02/11/2022 *COPD SEVERITY VERIFIED BY PFT 09/28/2022 Influenza Vaccine (FLU shot) (#1) 2022 GFR 03/28/2023 09/25/2022, /0 05/2022, 12/16/2021, Additional history exists CKD HGB USE SMARTSET 70489 09/26/202309/25, 12/16/2021, 12/09/2021, Additional history exists HbA1c [...] filedocumented as of this encounter Care Teams Global Chief Creative Officer Relationship Specialty Start Date End Date Geena Dunham, DO [address] [place] [address] PCP - General Family Medicine 02/20/22 documented as of this encounter
--- NOTE | 2023-04-14 14:00 | CT Scan Report ---
CT head/brain wo con CLINICAL HISTORY: mechanical fall, unclear LOC Technique: Contiguous axial CT images of the head were acquired from the base of the skull to the sophia randy without intravenous contrast administration. Images were viewed in brain, subdural and bone [facility]. Automated dose lowering techniques and/or adjustment according to patient size were utilized for this exam. Comparison: None available at the time of this dictation. Findings: The ventricles, basal cisterns, and cerebral sulci are normal. There is no acute intracranial hemorrh age or evidence of acute territorial infarction. Neither mass effect, shift of the midline structures , nor abnormal extra-axial fluid collections are shown. Imaged portions of the paranasal sinuses and mastoid air cells are clear. The orbits appear normal. There are no acute fractures of the calvaria or scalp swelling. Impression: No acute intracranial hemorrhage, no evidence of acute territorial infarction or other acute intracra nial disease process. ACT 112: Negative or not required by law. Electronically signed by: Spike Sierra M.D. 04/14/2023 1:59 PM
[2023-04-14] MEDS ORDERED: NITROGLYCERIN SL 0.4 MG/TAB TAB SL PRN (14:30)
[2023-04-14] MEDS ORDERED: POLYETHYLENE (MIRALAX) 17 GM PACK PO PRN (14:30)
--- NOTE | 2023-04-14 15:23 | Orthopedic Consultation ---
Date of Consultation April 14, 2023 Assessment & Plan (1) Transcervical fracture of left femur: Minimally displace impacted left transcervical hip fracture. Patient will be required to undergo ORIF of the hip fracture. Case was discussed with Dr. Perea. Plans will be to use either Synthes femoral neck system versus Synthes 7.3 cannulated screws. Patient will be made n.p.o. after midnight and plan for surgery tomorrow likely after noon. This was discussed with the patient in detail. Dr. Perea will see the patient prior to surgery to discuss any further needs or plans. History of Present Illness Reason for Consultation: Left hip fracture Attending Physician: Anne Barber MD History of Present Illness patient is a 72-year-old male with past medical history remarkable for obstructive CAD s/p [facility] with RCA disease, ICM, HTN, GERD, prediabetes and prior mechanical fall with right hip fracture s/p replacement who presented to [facility] ED due to left hip pain after fall. Patient apparently sleeps in a recliner and at one point last night got up to use the restroom. Patient apparently felt himself falling forward but he could not stop himself and he fell to the floor. He had increased pain in his left hip and groin and was having difficulty ambulating and putting weight on his hip. He was brought to the emergency room where he was seen by the staff. x- rays were taken and it was found that he had a left impacted transcervical fracture of the hip. Patient was then admitted by the medical service and we have been asked to see him for his left hip fracture. Currently the patient is sleeping upon arrival but is easily awoken. He has no complaints at this time. His pain is controlled while at rest. He has no other complaints at this time other than left hip pain with movement. Allergies Allergy/AdvReac Type Severity Reaction Status Date / Time No Known Allergies Allergy Unverified 04/14/23 10:18 Home Medications Medication Instructions Recorded Confirmed Type escitalopram oxalate 10 mg tablet 10 mg PO QAM 04/14/23 04/14/23 History gabapentin 300 mg capsule 300 mg PO PM 04/14/23 04/14/23 History Patient History Medical History Anxiety Non compliance w medication regimen CAD (coronary artery disease) S/p NSTEMI August 2012, leaving ER AMA Cardiac cath several weeks later showed blunted occlusion of RCA and other nonobstructive disease Atopic dermatitis Esophageal reflux (07/25/12) Tobacco use Surgical History History of ankle surgery Family History Father Diabetes Social History Smoking Status: Current every day smoker Tobacco Type: Cigarettes Second Hand Exposure: Yes; Do You Dip or Chew Tobacco: No; Hx Alcohol Use: No Hx Substance Use: No Preferred Language: Italian Communication Ability: Effective Title I Instructional Assistant Required: No Beliefs That Will Affect Care: None Current Living Situation: Family Feels Safe at Home: Yes Assistive Devices: None Physical Exam Physical Exam: Patient is a 72-year-old white male who appears a little older than his stated age. He is awake and alert during conversation and is oriented to person and place. On examination of the left lower extremity, leg lengths appear equal comparing to the right. He has no pain with range of motion of the right ankle and has good dorsiflexion and plantarflexion. He has no pain on palpation of his right knee and no obvious effusion. Knee range of motion is deferred secondary to left hip fracture. He has pain on palpation over the lateral hip at this time. Range of motion is deferred secondary to pain. Right lower extremity shows a previous incision from right bipolar hemiarthroplasty. Otherwise the right lower extremity is nontender on palpation at the hip, knee, and ankle. Range of motion is satisfactory. Upper extremities are unaffected and he is nontender at the shoulders, elbows, and wrists. Range of motion is satisfactory without pain. He denies pain in the cervical spine on palpation and is able to go through gentle range of motion without discomfort. He denies any thoracic or lumbar pain at this time. There is no gross motor or sensory loss seen at this time. Results & Data Vital Signs (Past 12 Hours) Vital Signs Temp Pulse Pulse Resp BP BP Pulse Ox 04/14/23 13:19 96 H 04/14/23 13:00 88 21 157/92 H 93 04/14/23 11:00 88 19 118/61 92 04/14/23 09:16 75 04/14/23 08:02 36.6 C 85 17 146/77 H 95 04/14/23 07:10 95 H 19 148/82 H 95 O2 Del Method 04/14/23 13:19 04/14/23 13:00 Room Air 04/14/23 11:00 Room Air 04/14/23 09:16 04/14/23 08:02 Room Air 04/14/23 07:10 Room Air Laboratory Results Laboratory Results WBC 12.79 K/ul (4.8-10.8) H 04/14/23 08:40 RBC 5.13 M/uL (4.70-6.10) 04/14/23 08:40 Hgb 14.5 g/dl (14.0-18.0) 04/14/23 08:40 Hct 44.5 % (42.0-52.0) 04/14/23 08:40 MCV 86.7 fL (80.0-100.0) 04/14/23 08:40 MCH 28.3 pg (25.0-34.0) 04/14/23 08:40 MCHC 32.6 g/dL (32.0-36.0) 04/14/23 08:40 RDW Std Deviation 43.9 fL (36.4-46.3) 04/14/23 08:40 RDW Coeff of Shaneka 13.7 % (11.5-14.5) 04/14/23 08:40 Plt Count 233 K/uL (130-400) 04/14/23 08:40 MPV 10.5 fL (9.4-12.4) 04/14/23 08:40 Immature Gran % (Auto) 0.5 % 04/14/23 08:40 Neut % (Auto) 89.5 % 04/14/23 08:40 Lymph % (Auto) 3.8 % 04/14/23 08:40 [place] % (Auto) 5.7 % 04/14/23 08:40 Eos % (Auto) 0.3 % 04/14/23 08:40 Baso % (Auto) 0.2 % 04/14/23 08:40 Neut # (Auto) 11.46 K/uL (1.40-6.50) H 04/14/23 08:40 Lymph # (Auto) 0.48 K/uL (1.20-3.40) L 04/14/23 08:40 [place] # (Auto) 0.73 K/uL (0.11-0.59) H 04/14/23 08:40 Eos # (Auto) 0.04 K/uL (0.00-0.50) 04/14/23 08:40 Baso # (Auto) 0.02 K/uL (0.00-0.20) 04/14/23 08:40 Immature Gran # (Auto) 0.06 K/uL (0.01-0.20) 04/14/23 08:40 Platelet Estimate Normal (Normal) 04/14/23 08:40 PT 10.8 Seconds (9.0-12.0) 04/14/23 10:02 INR 1.0 (0.9-1.1) 04/14/23 10:02 APTT 25 Seconds (21-31) 04/14/23 10:02 PTT Ratio 0.9 04/14/23 10:02 Sodium 135 mmol/L (136-145) L 04/14/23 08:40 Potassium 4.4 mmol/L (3.5-5.1) 04/14/23 08:40 Chloride 102 mmol/L (98-107) 04/14/23 08:40 Carbon Dioxide 30 mmol/L (21-32) 04/14/23 08:40 Anion Gap 3 (3-11) 04/14/23 08:40 BUN 15 mg/dl (6-23) 04/14/23 08:40 Creatinine 1.27 mg/dl (0.6-1.4) 04/14/23 08:40 Est Cr Clr Drug Dosing 55.9 ml/min 04/14/23 08:40 Est GFR ( Amer) 64.1 ml/min 04/14/23 08:40 Est GFR (Non-Af Amer) 55.3 ml/min 04/14/23 08:40 BUN/Creatinine Ratio 11.8 (10-20) 04/14/23 08:40 Glucose 141 mg/dl (70-99(Fasting)) H 04/14/23 08:40 Calcium 8.9 mg/dl (8.6-10.3) 04/14/23 08:40 Magnesium 1.8 mg/dl (1.7-2.4) 04/14/23 08:40 Total Bilirubin 0.5 mg/dl (0.2-1.0) 04/14/23 08:40 AST 13 U/L (13-39) 04/14/23 08:40 ALT 8 U/L (7-52) 04/14/23 08:40 Alkaline Phosphatase 82 U/L (34-104) 04/14/23 08:40 Troponin I High Sens 4.7 pg/ml (0-20) 04/14/23 12:37 B-Natriuretic Peptide 167 pg/ml (0-100) H 04/14/23 12:37 Total Protein 7.0 gm/dl (6.0-8.3) 04/14/23 08:40 Albumin 3.8 gm/dl (3.4-5.0) 04/14/23 08:40 Globulin 3.2 gm/dl (2.5-4.0) 04/14/23 08:40 Albumin/Globulin Ratio 1.2 (0.9-2) 04/14/23 08:40 Urine Color Yellow 04/14/23 08:30 Urine Appearance Clear (Clear) 04/14/23 08:30 Urine pH 6.5 (4.5-7.5) 04/14/23 08:30 Ur Specific [place] 1.017 (1.000-1.030) 04/14/23 08:30 Urine Protein Negative (Negative) 04/14/23 08:30 Urine Glucose (UA) Negative (Negative) 04/14/23 08:30 Urine Ketones Negative (Negative) 04/14/23 08:30 Urine Blood Negative (Negative) 04/14/23 08:30 Urine Nitrite Negative (Negative) 04/14/23 08:30 Urine Bilirubin Negative (Negative) 04/14/23 08:30 Urine Urobilinogen Negative (Negative) 04/14/23 08:30 Ur Leukocyte Esterase Negative (Negative) 04/14/23 08:30 Impressions Hip/Pelvis X-Ray 04/14/23 08:01 XR hip LT 2V w pelvis HISTORY: 72 years-old Male fall, left hip pain . Left-sided hip pain status post fall COMPARISON: 12/06/2021 TECHNIQUE: AP view the pelvis with 2 views of the left hip FINDINGS: Unremarkable appearance of the right hip arthroplasty. Demineralized appearance of the bones. Moderate left hip osteoarthritis. There is an acute nondisplaced transcervical left femoral neck fracture with mild impaction. No dislocation or avascular necrosis. No pelvic ring fracture. IMPRESSION: Acute nondisplaced mildly impacted transcervical left femoral fracture. ACT 112: Negative or not required by law. The above report was generated using voice recognition software. It may contain grammatical, syntax or spelling errors. Electronically signed by: Michael Alford M.D. 04/14/2023 10:59 AM Chest X-Ray 04/14/23 08:02 SINGLE VIEW CHEST CLINICAL HISTORY: Syncope FINDINGS: 2 AP supine chest radiographs are compared to study dated 12/07/2021. The heart is mildly enlarged. The pulmonary vasculature is noncongested. The lungs and pleural spaces are clear. No pneumothorax is seen. The skeletal structures are osteopenic. There are chronic/healed left-sided rib fractures. IMPRESSION: No active disease in the chest. ACT 112: Negative or not required by law. Electronically signed by: Alverto Kaur M.D. 04/14/2023 10:[address] 04/14/23 12:55 CT head/brain wo con CLINICAL HISTORY: mechanical fall, unclear LOC Technique: Contiguous axial CT images of the head were acquired from the base of the skull to the vertex without intravenous contrast administration. Images were viewed in brain, subdural and bone windows. Automated dose lowering techniques and/or adjustment according to patient size were utilized for this exam. Comparison: None available at the time of this dictation. Findings: The ventricles, basal cisterns, and cerebral sulci are normal. There is no acute intracranial hemorrhage or evidence of acute territorial infarction. Neither mass effect, shift of the midline structures, nor abnormal extra-axial fluid collections are shown. Imaged portions of the paranasal sinuses and mastoid air cells are clear. The orbits appear normal. There are no acute fractures of the calvaria or scalp swelling. Impression: No acute intracranial hemorrhage, no evidence of acute territorial infarction or other acute intracranial disease process. ACT 112: Negative or not required by law. Electronically signed by: Spike Sierra M.D. 04/14/2023 1:59 PM
[2023-04-14] MEDS: ESCITALOPRAM OXALATE 10 MG TAB PO SCH (15:49)
--- NOTE | 2023-04-14 16:03 | Electrocardiogram Report ---
Test Reason : Blood Pressure : / mmHG Vent. Rate : 084 BPM Atrial Rate : 084 BPM P-R Int : 170 ms QRS Dur : 090 ms QT Int : 410 ms P-R-T Axes : 070 026 093 degrees QTc Int : 484 ms Sinus rhythm with frequent Premature ventricular complexes Minor Nonspecific ST abnormality Anterolateral leads Abnormal ECG When compared with ECG of 05-DEC-2021 15:25, No significant change Confirmed by Dillon Snow ([id number]) on 04/14/2023 4:03:19 PM Referred By: REFERRED SELF Confirmed By:Dillon Snow
[2023-04-14] MEDS: GABAPENTIN 300 MG CAP PO SCH (20:38)
[2023-04-14] MEDS: AMMONIUM LACTATE 12% LOTION 225 GM BTL EXT SCH (20:42)
[2023-04-15 04:38] LABS: Hematocrit (blood only) 40.9 % (42.0-52.0); Mean Corpuscular Hemoglobin 28.7 pg (25.0-34.0); Mean Corpuscular Hgb Conc 34.2 g/dL (32.0-36.0); Mean Platelet Volume 9.9 fL (9.4-12.4); Platelet Count 219 K/uL (130-400); RDW Coefficient of Variation 13.7 % (11.5-14.5); RDW Standard Deviation 42.2 fL (36.4-46.3); Red Blood Count 4.87 M/uL (4.70-6.10); White Blood Count 8.66 K/ul (4.8-10.8)
[2023-04-15 04:48] LABS: BUN Creatinine Ratio 14.8 (10-20); Calcium 8.4 mg/dl (8.6-10.3); Chol HDL Ratio 4.6 (0-5); Creatinine Clr Calc Pharmacy 65.7 ml/min; Est GFR (Non-African American) 67.3 ml/min; Magnesium 1.8 mg/dl (1.7-2.4); Phosphorus 3.3 mg/dl (2.5-4.9)
[2023-04-15 07:09] LABS: Estimated Average Glucose 120 mg/dl; Hemoglobin A1C 5.8 % (4.5-5.6)
--- NOTE | 2023-04-15 08:31 | Anesthesiology Consultation ---
Date of Service April 15, 2023 Assessment & Plan Chart Review Chart Review: Acceptable Risk for Surgery and Patient NOT seen in Pre Admission Testing History Surgery Operation Date: 04/15/23 12:15 Proposed Procedures p Left Hip Open Reduction Internal Fixation - Luiz Perea MD Height/Weight Height: 5 ft 9 in Weight: 87.4 kg Allergies Allergy/AdvReac Type Severity Reaction Status Date / Time No Known Allergies Allergy Unverified 04/14/23 10:18 Medications Home Medications Medication Instructions Recorded Confirmed Last Taken escitalopram oxalate 10 mg tablet 10 mg PO QAM 04/14/23 04/14/23 04/13/23 gabapentin 300 mg capsule 300 mg PO PM 04/14/23 04/14/23 04/13/23 Active Medications Generic Name Dose Route Start Last Admin Trade Name Freq PRN Reason Stop Dose Admin Acetaminophen 1,000 mg 04/14/23 12:00 04/15/23 05:16 Acetaminophen 500 Mg Tab PO 05/14/23 11:59 Not Given Q8H TIMOTHY Escitalopram Oxalate 10 mg 04/14/23 14:30 04/14/23 15:49 Escitalopram Oxalate 10 Mg Tab PO 05/14/23 14:29 10 mg QAM TIMOTHY Administration Gabapentin 300 mg 04/14/23 21:00 04/14/23 20:38 Gabapentin 300 Mg Cap PO 05/14/23 20:59 300 mg PM TIMOTHY Administration Lactic Acid 1 gm 04/14/23 21:00 04/14/23 20:42 Ammonium Lactate 12% Lotion 225 Gm Btl EXT 05/14/23 20:59 Not Given BID TIMOTHY Past Medical History Medical History Anxiety Non compliance w medication regimen CAD (coronary artery disease) S/p NSTEMI August 2012, leaving ER AMA Cardiac cath several weeks later showed blunted occlusion of RCA and other nonobstructive disease Atopic dermatitis Esophageal reflux (07/25/12) Tobacco use Exercise / Class Metabolic Activity II 4-5 Yardwork/Stairs/Walk up hill Past Family History Family History Father Diabetes Past Surgical History Surgical History History of ankle surgery Past Anesthesia History No Hx of Anesthesia Complications and No Family Hx of Anesthesia Complications History of PONV No Hx of PONV and No Hx of Motion Sickness Social History Smoking Status: Current every day smoker tobacco type: cigarettes Do You Dip or Chew Tobacco: No Hx Alcohol Use: No Hx Substance Use: No substance use type: does not use Physical Exam Vital Signs Last Vital Signs Temp 36.6 C 04/14/23 08:02 Pulse 100 H 04/15/23 07:24 Resp 18 04/15/23 06:00 BP 184/106 H 04/15/23 06:00 Pulse Ox 95 04/15/23 06:00 O2 Del Method Room Air 04/15/23 06:00 Testing Laboratory Results 04/15/23 04:14 04/15/23 04:14 PT 10.8 Seconds (9.0-12.0) 04/14/23 10:02 INR 1.0 (0.9-1.1) 04/14/23 10:02 APTT 25 Seconds (21-31) 04/14/23 10:02 Hemoglobin A1c 5.8 % (4.5-5.6) H 04/15/23 04:14 Urine Color Yellow 04/14/23 08:30 Urine Appearance Clear (Clear) 04/14/23 08:30 Urine pH 6.5 (4.5-7.5) 04/14/23 08:30 Ur Specific [place] 1.017 (1.000-1.030) 04/14/23 08:30 Urine Protein Negative (Negative) 04/14/23 08:30 Urine Glucose (UA) Negative (Negative) 04/14/23 08:30 Urine Ketones Negative (Negative) 04/14/23 08:30 Urine Nitrite Negative (Negative) 04/14/23 08:30 Ur Leukocyte Esterase Negative (Negative) 04/14/23 08:30 Blood Type O Positive 04/15/23 04:14 Antibody Screen NEGATIVE 04/15/23 04:14
[2023-04-15] MEDS: DOCUSATE SODIUM/SENNA 50/8.6MG TAB PO SCH (08:49)
[2023-04-15] MEDS: oxyCODONE HCL IR 5 MG TAB (IMMEDIATE RELEASE) PO PRN (08:51)
[2023-04-15] MEDS ORDERED: PROPOFOL IV EMULSION 10 MG/ML 20 ML VIAL IV ONE (11:57)
[2023-04-15] MEDS ORDERED: LIDOCAINE 2% 2 ML VIAL/AMP(20MG/ML) INFIL ONE (11:57)
[2023-04-15] MEDS ORDERED: fentaNYL citrate PF 100 MCG/2 ML VIAL ONE (11:59)
[2023-04-15] MEDS ORDERED: ePHEDrine sulfate 50 MG/ML AMP IV PRN (13:11)
[2023-04-15] MEDS ORDERED: fentaNYL citrate PF 100 MCG/2 ML VIAL IV PRN (13:11)
[2023-04-15] MEDS ORDERED: ONDANSETRON INJ 2 MG/ML 2 ML VIAL IV PRN (13:11)
[2023-04-15] MEDS ORDERED: ATROPINE SULFATE 0.1 MG/ML 10ML SYR IV PRN (13:11)
--- NOTE | 2023-04-15 13:30 | History & Physical Bridge Note ---
Date of Service April 15, 2023 History & Physical Bridge Note I have examined the patient, reviewed the History & Physical and in the interval since the performance of the History & Physical I have noted the following changes of clinical significance: no changes noted
[2023-04-15] MEDS: ceFAZolin 2000MG 2,000 MG/15 ML SYR IV ONE (13:33)
[2023-04-15] MEDS ORDERED: PHENYLEPHRINE 100MCG/ML 10ML SYR IV ONE (13:53)
[2023-04-15] MEDS ORDERED: ePHEDrine sulfate 50 MG/5 ML SYR ONE (13:53)
[2023-04-15] MEDS ORDERED: HYDROmorphone INJ 2 MG/ML SYR/VIAL ONE (14:18)
--- NOTE | 2023-04-15 14:22 | Hospitalist Progress Note ---
Date of Service April 15, 2023 Assessment & Plan (1) Transcervical fracture of left femur: (2) Syncope: (3) Atopic dermatitis: (4) CAD (coronary artery disease): Plan 72 year old gentleman with past history of CAD, ICM, GERD, atopic dermatitis , prediabetes, HLD, prior fall with right hip fracture 2021 s/p right hemiarthroplasty who is presenting to [facility]/ after fall with subsequent hip fracture. Patient reports questionable syncope, but reports it to be more disorientation after landing. Of note, patient with long standing medication noncompliance, mostly secondary to financial limitations. He is being managed for the following: #Left transcervical femoral fracture Admitting Hip XR IMPRESSION: Acute nondisplaced mildly impacted transcervical left femoral fracture. Ortho consult, plan for repair today. Tylenol 1000mg q8h scheduled, po oxy 5 for moderate, iv morphine 1mg severe #Mechanical fall #c/f Syncopal episode Patient's reports suggest disorientation on ground after fall 2/2 pain, as he denies presyncope and recalls "fall" ECHO w/ EF of 55-60%, Gr I diastolic dysfunction. Troponin trends x neg, pt w/ no chest pain. CXR w/ no congestion. CT head w/ no acute findings. PT/OT when able, Fall precaution. #History of ICM #HTN #Obstructive CAD s/p cath 2012, NSTEMI occluded RCA Monitor on tele Consider initiating low dose BB post-operatively, encourage ASA s/p procedure ECHO as above Monitor on tele RCRI class III risk Cardio f/u on DC. History of medication noncompliance: Was taking metoprolol bid, discontinued by self. will probably start him on metoprolol post procedure. He uses albuterol inhaler as needed and only takes escitalopram and gabapentin at home. Outpatient chart reviewed 04/14 with metoprolol succinate 25 mg twice daily, Breo Ellipta 1 puff daily, KCl 10 mill equivalent twice a day, Dupixent every 2 weeks, aspirin 81 Mg daily. Prediabetes: A1c of 5.8, para educator consult. A1c in 3 months. Lifestyle modification encouraged. Leukocytosis: Likely reactive secondary to pain. Trended down to normal. UA negative for UTI at presentation. CXR was also normal. Patient with no complaints/symptoms of infectious etiology. COPD: History of, no wheezing noted on admission. Uses albuterol inhaler as needed. Tobacco use: 0.5 to 1 packs a day, advised smoking cessation. Atopic dermatitis: Did not receive Dupixent injection for "months". Lac hydrin lotion while in the hospital. PCP Dr Dunham DVT SCDs, chemoprophylaxis when bleeding risks deemed minimal per orthopedic surgery. Admit med tele Admission and Anticipated Discharge Date Admission Date: April 14, 2023 Subjective Patient was seen and examined at bedside. Patient was lying in bed, on room air, NAD, resting comfortably. Patient reports pain at fracture site under control while at rest but worse with movement. Patient denies any febrile illness, reports cough at baseline, denies sore throat. Denies chest pain or abdominal pain, denies any acute changes with his bowel/bladder/appetite habit. Physical Exam Physical Exam: GENERAL APPEARANCE: AxOx4, mildly uncomfortable gentleman HEENT: NC, AT. MMM. EOMI, clear conjunctiva, oropharynx clear. NECK: Supple without lymphadenopathy. No stiffness or restricted ROM. HEART: Normal rate and regular rhythm, normal S1/S1, no m/r/g LUNGS: CTAB, moving air well. few rhonchi, cleared with cough ABDOMEN: Soft, nontender, nondistended with good bowel sounds heard. BACK: No CVAT, no obvious deformity. EXTREMITIES: Without cyanosis, clubbing or edema. pulse and sensation intact BLE NEUROLOGICAL: Grossly nonfocal. Alert and oriented, moving all 4 extremities. CN not formally tested but appear grossly intact. Skin: diffuse lower extremity xerosis, L>R. Results & Data Results & Data Vital Signs (Past 12 Hours) Vital Signs Temp Pulse Pulse Pulse Resp BP BP 04/15/23 12:02 36.8 C 96 H 20 157/99 H 04/15/23 08:52 105 H 20 161/87 H 04/15/23 07:24 100 H 04/15/23 06:00 108 H 18 184/106 H 04/15/23 02:09 79 18 139/91 Pulse Ox O2 Del Method 04/15/23 12:02 95 Room Air 04/15/23 08:52 93 Room Air 04/15/23 07:24 04/15/23 06:00 95 Room Air 04/15/23 02:09 96 Room Air
[2023-04-15] MEDS ORDERED: ONDANSETRON INJ 2 MG/ML 2 ML VIAL ONE (14:30)
[2023-04-15] MEDS: LIDOCAINE 1%/EPINEPHRINE 1:100,000 20 ML VIAL ONE (14:31)
--- NOTE | 2023-04-15 14:36 | Post Operative Brief Note ---
Immediate Post Op Note v1 Date of Surgery April 15, 2023 Pre & Post Diagnosis Operation Date: 04/15/23 12:15 Pre-Op Diagnosis: PRE-SYNCOPAL, LEFT HIP FRACTURE Post-Op Diagnosis: PRE-SYNCOPAL, LEFT HIP FRACTURE I identified the patient and participated in the time-out.: Yes Procedure Operation Date: 04/15/23 12:15 Actual Procedures p Left Hip Open Reduction Internal Fixation(Left) - Luiz Perea MD Surgeon Luiz Perea MD Household Manager Trever Spear PAClarice Estimated Blood Loss 25 Findings Consistent with Post-Op Diagnosis
--- NOTE | 2023-04-15 15:08 | Fluoroscopy Report ---
FL hip LT 2-3V CLINICAL HISTORY: LT HIP ORIF TECHNIQUE: 3 views were obtained with the C-arm in the OR with the above procedure. Total fluoroscopy time was 40.6 seconds. Radiation dose was 8.21 mGy. Comparison: Comparison is made to hip radiograph 04/14/2023 FINDINGS/IMPRESSION: Intraoperative images were obtained of open reduction internal fixation. Please correlate with intraoperative fluoroscopy and operative report. ACT 112: Negative or not required by law. Electronically signed by: Spike Sierra M.D. 04/15/2023 3:07 PM
--- NOTE | 2023-04-15 15:56 | Anesthesiology Progress Note ---
Date of Service April 15, 2023 Anesthesia Post Procedure Vital Signs Vital Signs: Temp Pulse Pulse Pulse Resp BP BP 04/15/23 15:52 36.5 C 102 H 18 134/73 04/15/23 15:40 102 H 16 143/73 H 04/15/23 15:30 103 H 16 141/75 H 04/15/23 15:20 105 H 17 147/73 H 04/15/23 15:10 107 H 17 147/73 H 04/15/23 15:00 103 H 16 152/75 H 04/15/23 14:50 102 H 15 145/72 H 04/15/23 14:43 36.2 C L 100 H 16 148/79 H 04/15/23 12:02 36.8 C 96 H 20 157/99 H 04/15/23 08:52 105 H 20 161/87 H 04/15/23 07:24 100 H 04/15/23 06:00 108 H 18 184/106 H 04/15/23 02:09 79 18 139/91 04/15/23 00:00 85 16 150/87 H 04/14/23 23:07 93 H 04/14/23 20:37 99 H 22 169/90 H 04/14/23 18:00 80 20 158/91 H Pulse Ox O2 Del Method O2 Flow Rate 04/15/23 15:52 94 Nasal Cannula 2 04/15/23 15:40 94 Nasal Cannula 2 04/15/23 15:30 95 Nasal Cannula 2 04/15/23 15:20 92 Nasal Cannula 2 04/15/23 15:10 96 Oxymask 4 04/15/23 15:00 98 Oxymask 4 04/15/23 14:50 99 Oxymask 6 04/15/23 14:43 98 Oxymask 6 04/15/23 12:02 95 Room Air 04/15/23 08:52 93 Room Air 04/15/23 07:24 04/15/23 06:00 95 Room Air 04/15/23 02:09 96 Room Air 04/15/23 00:00 93 Room Air 04/14/23 23:07 04/14/23 20:37 94 Room Air 04/14/23 18:00 96 Room Air Pain Intensity Left Hip: Pain Intensity: 3 Transfer of Care Handoff Completed per policy Notes Mental Status: alert / awake / arousable Patient Amnestic to Procedure: Yes Nausea / Vomiting: adequately controlled Pain: adequately controlled Airway Patency, RR, SpO2: stable & adequate BP & HR: stable & adequate Hydration State: stable & adequate Anesthetic Complications: no major complications apparent
--- NOTE | 2023-04-15 16:12 | Operative Report ---
Post Operative Report Pre & Post Diagnosis Operation Date: 04/15/23 12:15 Pre-Op Diagnosis: PRE-SYNCOPAL, LEFT HIP FRACTURE Post-Op Diagnosis: PRE-SYNCOPAL, LEFT HIP FRACTURE I identified the patient and participated in the time-out.: Yes Procedure Operation Date: 04/15/23 12:15 Actual Procedures p Left Hip Open Reduction Internal Fixation(Left) - Luiz Perea MD Surgeon Luiz Perea MD Toolroom Checker Trever Spear PA-C Estimated Blood Loss 25 Findings Consistent with Post-Op Diagnosis Nondisplaced transcervical fracture of the hip Specimens None Indications Components used: Synthes femoral neck fixation system: 1 hole 130 degree sideplate with 95 mm bolt, 95 mm antirotation screw, and 46 mm locking screw. Description of Procedure Following satisfactory spinal anesthesia the patient was supine on the operating room table. The left hip was placed in the traction and device on the fracture table and the right leg in the well-leg dietrich. Positioning was confirmed with AP and lateral fluoroscopic imaging. The leg was then prepared with ChloraPrep and draped sterilely. A surgical timeout was performed. A 6 cm incision was made on the lateral side of the hip with a direct lateral approach. Hemostasis was obtained. The fascia was divided longitudinally and the vastus muscle split down to the level of the bone. A guidewire was then induced into the center of the femoral neck with position confirmed in both AP and lateral fluoroscopic imaging. The guidewire was measured and was drilled for the 95 mm bolt. The 1 hole 130 degree plate was then applied and advanced to the lateral cortex. Positioning was confirmed in AP and lateral fluoroscopic imaging. Using the outrigger system a 46 mm locking screw was placed in the single sidehole. Position again and appropriate length of the screw was confirmed. The antirotation screw was then drilled and a 95 mm antirotation screw placed. Fluoroscopy confirmed excellent position of all 3 screws in the hardware and fracture reduction. The wound was irrigated with 100 cc of normal saline. The fascia was closed with interrupted [id number] sutures of 1 Vicryl as well as the deeper subcutaneous fat layer was closed with 2-0 Vicryl. The skin was closed with surgical tabatha. A dry dressing was applied. The patient was returned to his bed having tolerated the procedure and in good condition. Note: Trever NAVA was present and assisted throughout due to the complicated nature of this case. He help with preparation and set up, he cutting table operator first throughout. He assisted with hemostasis and exposure throughout the procedure. He also closed the fascial subcutaneous and skin layers and applied the postop dressing. I attest to the content of the Intraoperative Record and any orders documented therein. Any exceptions are noted below.
[2023-04-15] MEDS: ceFAZolin 2,000 MG/15 ML IV PUSH IV ONE (16:58)
[2023-04-15] MEDS: SODIUM CHLORIDE 0.9% 1,000 ML IV SCH (17:36)
[2023-04-15] MEDS: ASPIRIN 81 MG ECTAB PO SCH (20:25)
[2023-04-15] MEDS: ceFAZolin 2000MG 2,000 MG/15 ML SYR IV SCH (20:26)
[2023-04-16 06:42] LABS: Basophils # (auto) 0.01 K/uL (0.00-0.20); Basophils % (auto) 0.1 %; Eosinophils # (auto) 0.16 K/uL (0.00-0.50); Eosinophils % (auto) 1.8 %; Hematocrit (blood only) 38.1 % (42.0-52.0); Hemoglobin 12.8 g/dl (14.0-18.0); Immature Granulocytes # (auto) 0.04 K/uL (0.01-0.20); Immature Granulocytes % (auto) 0.4 %; Lymphocytes # (auto) 0.38 K/uL (1.20-3.40); Lymphocytes % (auto) 4.3 %; Mean Corpuscular Hemoglobin 28.1 pg (25.0-34.0); Mean Corpuscular Hgb Conc 33.6 g/dL (32.0-36.0); Mean Corpuscular Volume 83.7 fL (80.0-100.0); Mean Platelet Volume 9.9 fL (9.4-12.4); Monocytes % (auto) 7.8 %; Neutrophils # (auto) 7.63 K/uL (1.40-6.50); Neutrophils % (auto) 85.6 %; Platelet Count 224 K/uL (130-400); RDW Coefficient of Variation 13.5 % (11.5-14.5); RDW Standard Deviation 41.6 fL (36.4-46.3); Red Blood Count 4.55 M/uL (4.70-6.10); White Blood Count 8.92 K/ul (4.8-10.8)
[2023-04-16 07:14] LABS: BUN Creatinine Ratio 12.4 (10-20); Creatinine Clr Calc Pharmacy 67.4 ml/min; Est GFR (African American) 80.7 ml/min; Est GFR (Non-African American) 69.6 ml/min; Magnesium 1.7 mg/dl (1.7-2.4); Phosphorus 3.5 mg/dl (2.5-4.9)
--- NOTE | 2023-04-16 07:27 | Orthopedic Progress Note ---
Date of Service April 16, 2023 Assessment & Plan (1) Transcervical fracture of left femur: Plan: Postop day 1 status post ORIF left hip PT/OT protocols. Weightbearing as tolerated. DVT prophylaxis-aspirin p.o. twice daily, SCDs Pain management as written. DC planning-patient may require rehab facility versus care home facility prior to returning home. Admission and Anticipated Discharge Date Admission Date: April 14, 2023 Subjective Postop day 1 status post left hip ORIF Patient sleeping upon entering room. Easily awoken. States that his pain is controlled if he is lying in bed. States he has increased pain with moving or getting out of bed. He also complains of some nausea this morning. He denies emesis currently. No other complaints this morning. Physical Exam Physical Exam: Dressings are clean, dry, and intact. Thigh is soft and nontender. Calves are soft nontender. Neurovascular is intact. Results & Data Vital Signs (Past 12 Hours) Vital Signs Temp Pulse Pulse Resp BP Pulse Ox O2 Del Method 04/16/23 04:32 36.7 C 108 H 18 160/59 H 95 Oxymask 04/16/23 00:18 103 H 04/15/23 19:29 36.6 C 100 H 18 124/69 90 Room Air O2 Flow Rate 04/16/23 04:32 3 04/16/23 00:18 04/15/23 19:29 Laboratory Results 04/16/23 04/15/23 04/15/23 Range/Units 05:58 20:02 17:10 WBC 8.92 (4.8-10.8) K/ul RBC 4.55 L (4.70-6.10) M/uL Hgb 12.8 L (14.0-18.0) g/dl Hct 38.1 L (42.0-52.0) % MCV 83.7 (80.0-100.0) fL MCH 28.1 (25.0-34.0) pg MCHC 33.6 (32.0-36.0) g/dL RDW Std Deviation 41.6 (36.4-46.3) fL RDW Coeff of Shaneka 13.5 (11.5-14.5) % Plt Count 224 (130-400) K/uL MPV 9.9 (9.4-12.4) fL Immature Gran % (Auto) 0.4 % Neut % (Auto) 85.6 % Lymph % (Auto) 4.3 % Simpson % (Auto) 7.8 % Eos % (Auto) 1.8 % Baso % (Auto) 0.1 % Neut # (Auto) 7.63 H (1.40-6.50) K/uL Lymph # (Auto) 0.38 L (1.20-3.40) K/uL Simpson # (Auto) 0.70 H (0.11-0.59) K/uL Eos # (Auto) 0.16 (0.00-0.50) K/uL Baso # (Auto) 0.01 (0.00-0.20) K/uL Immature Gran # (Auto) 0.04 (0.01-0.20) K/uL Sodium 134 L (136-145) mmol/L Potassium 4.0 (3.5-5.1) mmol/L Chloride 101 (98-107) mmol/L Carbon Dioxide 25 (21-32) mmol/L Anion Gap 8 (3-11) BUN 13 (6-23) mg/dl Creatinine 1.05 (0.6-1.4) mg/dl Est Cr Clr Drug Dosing 67.4 ml/min Est GFR ( Amer) 80.7 ml/min Est GFR (Non-Af Amer) 69.6 ml/min BUN/Creatinine Ratio 12.4 (10-20) Glucose 107 H (70-99(Fasting)) mg/dl POC Glucose 110 H 126 H (70-99) mg/dl Calcium 8.0 L (8.6-10.3) mg/dl Phosphorus 3.5 (2.5-4.9) mg/dl Magnesium 1.7 (1.7-2.4) mg/dl 25-OH Vitamin D Total Pending 04/15/23 Range/Units 12:18 WBC (4.8-10.8) K/ul RBC (4.70-6.10) M/uL Hgb (14.0-18.0) g/dl Hct (42.0-52.0) % MCV (80.0-100.0) fL MCH (25.0-34.0) pg MCHC (32.0-36.0) g/dL RDW Std Deviation (36.4-46.3) fL RDW Coeff of Shaneka (11.5-14.5) % Plt Count (130-400) K/uL MPV (9.4-12.4) fL Immature Gran % (Auto) % Neut % (Auto) % Lymph % (Auto) % Simpson % (Auto) % Eos % (Auto) % Baso % (Auto) % Neut # (Auto) (1.40-6.50) K/uL Lymph # (Auto) (1.20-3.40) K/uL Simpson # (Auto) (0.11-0.59) K/uL Eos # (Auto) (0.00-0.50) K/uL Baso # (Auto) (0.00-0.20) K/uL Immature Gran # (Auto) (0.01-0.20) K/uL Sodium (136-145) mmol/L Potassium (3.5-5.1) mmol/L Chloride (98-107) mmol/L Carbon Dioxide (21-32) mmol/L Anion Gap (3-11) BUN (6-23) mg/dl Creatinine (0.6-1.4) mg/dl Est Cr Clr Drug Dosing ml/min Est GFR ( Amer) ml/min Est GFR (Non-Af Amer) ml/min BUN/Creatinine Ratio (10-20) Glucose (70-99(Fasting)) mg/dl POC Glucose 89 (70-99) mg/dl Calcium (8.6-10.3) mg/dl Phosphorus (2.5-4.9) mg/dl Magnesium (1.7-2.4) mg/dl 25-OH Vitamin D Total
--- NOTE | 2023-04-16 07:54 | Orthopedic Progress Note ---
Date of Service April 16, 2023 Assessment & Plan (1) Transcervical fracture of left femur: Plan: Postop day 1 status post ORIF left hip PT/OT protocols. Weightbearing as tolerated. DVT prophylaxis-aspirin p.o. twice daily, SCDs Pain management as written. DC planning-patient may require rehab facility versus [facility] facility prior to returning home. Admission and Anticipated Discharge Date Admission Date: April 14, 2023 Subjective Postop day 1 status post left hip ORIF Patient sleeping upon entering room. Easily awoken. States that his pain is controlled if he is lying in bed. States he has increased pain with moving or getting out of bed. He also complains of some nausea this morning. He denies emesis currently. No other complaints this morning. Physical Exam Physical Exam: Patient is examined at the bedside. His left hip dressing is clean dry and intact his thigh is soft and nontender and he is neurologically and vascularly intact. Results & Data Vital Signs (Past 12 Hours) Vital Signs Temp Pulse Pulse Resp BP Pulse Ox O2 Del Method 04/16/23 04:32 36.7 C 108 H 18 160/59 H 95 Oxymask 04/16/23 00:18 103 H O2 Flow Rate 04/16/23 04:32 3 04/16/23 00:18
[2023-04-16] MEDS: MAGNESIUM SULFATE / D5W 1 GM/100 ML BAG IV SCH (09:01)
[2023-04-16] MEDS: CHOLECALCIFEROL 125 MCG (5,000 UNITS) TAB PO SCH (09:04)
[2023-04-16] MEDS: METOPROLOL TARTRATE 25 MG TAB PO SCH (09:04)
[2023-04-16] MEDS: FLUTICASONE/VILANTEROL 100/25MCG 14 PUFFS/INHALER INH SCH (09:04)
--- NOTE | 2023-04-16 16:20 | Hospitalist Progress Note ---
Date of Service April 16, 2023 Assessment & Plan (1) Transcervical fracture of left femur: (2) Syncope: (3) Atopic dermatitis: (4) CAD (coronary artery disease): Plan 72 year old gentleman with past history of CAD, ICM, GERD, atopic dermatitis , prediabetes, HLD, prior fall with right hip fracture 2021 s/p right hemiarthroplasty who is presenting to [facility] 04/13 after fall with subsequent hip fracture. Patient reports questionable syncope, but reports it to be more disorientation after landing. Of note, patient with long standing medication noncompliance, mostly secondary to financial limitations. He is being managed for the following: #Left transcervical femoral fracture #Age-related osteoporotic fracture of the left hip Admitting Hip XR IMPRESSION: Acute nondisplaced mildly impacted transcervical left femoral fracture. Ortho consult, status post left hip ORIF on 04/15/2023. Tylenol 1000mg q8h scheduled, po oxy 5 for moderate, iv morphine 1mg severe Vitamin D level low, supplement started 04/15. Repeat level in 3 months. #Mechanical fall #c/f Syncopal episode Patient's reports suggest disorientation on ground after fall 2/2 pain, as he denies presyncope and recalls "fall" ECHO w/ EF of 55-60%, Gr I diastolic dysfunction. Troponin trends x neg, pt w/ no chest pain. CXR w/ no congestion. CT head w/ no acute findings. PT/OT when able, Fall precaution. #History of ICM #HTN #Obstructive CAD s/p cath 2012, NSTEMI occluded RCA Monitor on tele , initiated prior dose of beta-neo, transition to metoprolol succinate on discharge. Patient currently on baby aspirin twice daily for DVT prophylaxis, transition to daily aspirin after 35 days from 04/15/2023. Echo as above, continue telemetry monitoring. Cardiology follow-up on DC. History of medication noncompliance: Was taking metoprolol bid, discontinued by self. will probably start him on metoprolol post procedure. He uses albuterol inhaler as needed and only takes escitalopram and gabapentin at home. Outpatient chart reviewed 04/14 with metoprolol succinate 25 mg twice daily, Breo Ellipta 1 puff daily, KCl 10 mill equivalent twice a day, Dupixent every 2 weeks, aspirin 81 Mg daily. Prediabetes: A1c of 5.8, early childhood special educator consult. A1c in 3 months. Lifestyle modification encouraged. Leukocytosis: Likely reactive secondary to pain. Trended down to normal. UA negative for UTI at presentation. CXR was also normal. Patient with no complaints/symptoms of infectious etiology. COPD: History of, no wheezing noted on admission. Uses albuterol inhaler as needed. Tobacco use: 0.5 to 1 packs a day, advised smoking cessation. Atopic dermatitis: Did not receive Dupixent injection for "months". Lac hydrin lotion while in the hospital. PCP Dr Dunham DVT : Baby aspirin twice daily. Admit med tele Admission and Anticipated Discharge Date Admission Date: April 14, 2023 Subjective Patient was seen and examined at bedside. Patient was sitting up in chair, on room air, resting comfortably. Patient has poor appetite at baseline, has more bowel, no new acute issues overnight, reports left hip pain under control. Per RN, patient has been declining pain medication. No new acute event overnight. Physical Exam Physical Exam: GENERAL APPEARANCE: AxOx4, mildly uncomfortable gentleman HEENT: NC, AT. MMM. EOMI, clear conjunctiva, oropharynx clear. NECK: Supple without lymphadenopathy. No stiffness or restricted ROM. HEART: Normal rate and regular rhythm, normal S1/S1, no m/r/g LUNGS: CTAB, moving air well. few rhonchi, cleared with cough ABDOMEN: Soft, nontender, nondistended with good bowel sounds heard. BACK: No CVAT, no obvious deformity. EXTREMITIES: Without cyanosis, clubbing or edema. pulse and sensation intact BLE. left hip with clean dressing without soakage. NEUROLOGICAL: Grossly nonfocal. Alert and oriented, moving all 4 extremities. CN not formally tested but appear grossly intact. Skin: diffuse lower extremity xerosis, L>R. Results & Data Results & Data Vital Signs (Past 12 Hours) Vital Signs Temp Pulse Pulse Resp BP Pulse Ox O2 Del Method 04/16/23 11:28 36.9 C 89 16 109/64 92 Room Air 04/16/23 08:09 107 H 04/16/23 08:07 36.8 C 103 H 16 150/85 H 92 Room Air 04/16/23 08:00 Room Air 04/16/23 04:32 36.7 C 108 H 18 160/59 H 95 Oxymask O2 Flow Rate 04/16/23 11:28 04/16/23 08:09 04/16/23 08:07 04/16/23 08:00 04/16/23 04:32 3
[2023-04-17 06:23] LABS: Hematocrit (blood only) 36.6 % (42.0-52.0); Hemoglobin 12.2 g/dl (14.0-18.0); Mean Corpuscular Hemoglobin 28.4 pg (25.0-34.0); Mean Corpuscular Hgb Conc 33.3 g/dL (32.0-36.0); Mean Corpuscular Volume 85.1 fL (80.0-100.0); Mean Platelet Volume 10.2 fL (9.4-12.4); Platelet Count 226 K/uL (130-400); RDW Coefficient of Variation 13.6 % (11.5-14.5); RDW Standard Deviation 42.5 fL (36.4-46.3); White Blood Count 7.63 K/ul (4.8-10.8)
[2023-04-17 06:44] LABS: BUN Creatinine Ratio 14.9 (10-20); Calcium 8.1 mg/dl (8.6-10.3); Creatinine Clr Calc Pharmacy 74.6 ml/min; Est GFR (African American) 92.2 ml/min; Est GFR (Non-African American) 79.6 ml/min; Phosphorus 2.7 mg/dl (2.5-4.9); Potassium 3.7 mmol/L (3.5-5.1)
--- NOTE | 2023-04-17 11:31 | Discharge Summary ---
Date of Service April 17, 2023 Admission HPI Per Admitting Provider Mr. Monte is a 72 year old gentleman with past medical history remarkable for obstructive CAD s/p [facility] with RCA disease, ICM, HTN, GERD, prediabetes and prior mechanical fall with right hip fracture s/p replacement who presented to [facility] ED due to left hip pain after fall. Patient states that sleeps in a recliner in his sister's apartment with a bedside commode in the living room with him. He woke to use the commode and notes that he just "felt [himself] going forward." He didn't feel like he "passed out" but suspects the fall and pain made him feel disoriented. He notes that he does not take Metoprolol, despite recently being prescribed this medication, as cost is limiting. He also does not take aspirin. He only takes his escitalopram and gabapentin once daily. He states he has otherwise been in his usual state of health, denying any chest pain, palpitations, syncope or near syncope, fevers, GI upset, or other acute concerns. He notes that he doesn't "go out much" and his sister often gets the groceries. He reports feeling chronic balance issues after his right hip replacement, noting his leg just never feels "quite balanced." He denies any recent alcohol use. He smokes 05.-[id number] No illicit substances In the ED, vitals were notable for BP in 140s, HR of 80 to 90s, and O2 sat of low 90s on room air. Imaging revealed left transcervical femur fracture. CXR WNL EKG reviewed, no acute changes appreciate ED interventions: morphine Consultants: Ortho Patient to be admitted to [facility] for further evaluation and management of left hip fracture. Admission Exam Per Admitting Provider GENERAL APPEARANCE: AxOx4, mildly uncomfortable gentleman HEENT: NC, AT. MMM. EOMI, clear conjunctiva, oropharynx clear. NECK: Supple without lymphadenopathy. No stiffness or restricted ROM. HEART: Normal rate and regular rhythm, normal S1/S1, no m/r/g LUNGS: CTAB, moving air well. few rhonchi, cleared with cough ABDOMEN: Soft, nontender, nondistended with good bowel sounds heard. BACK: No CVAT, no obvious deformity. EXTREMITIES: Without cyanosis, clubbing or edema. pulse and sensation intact BLE NEUROLOGICAL: Grossly nonfocal. Alert and oriented, moving all 4 extremities. CN not formally tested but appear grossly intact. Skin: diffuse lower extremity xerosis, L>R. Principal Diagnosis Left hip fracture Discharge Exam GENERAL APPEARANCE: AxOx4, mildly uncomfortable gentleman HEENT: NC, AT. MMM. EOMI, clear conjunctiva, oropharynx clear. NECK: Supple without lymphadenopathy. No stiffness or restricted ROM. HEART: Normal rate and regular rhythm, normal S1/S1, no m/r/g LUNGS: CTAB, moving air well. few rhonchi, cleared with cough ABDOMEN: Soft, nontender, nondistended with good bowel sounds heard. BACK: No CVAT, no obvious deformity. EXTREMITIES: Without cyanosis, clubbing or edema. pulse and sensation intact BLE. left hip with clean dressing without soakage. NEUROLOGICAL: Grossly nonfocal. Alert and oriented, moving all 4 extremities. CN not formally tested but appear grossly intact. Skin: diffuse lower extremity xerosis, L>R. Discharge Data Allergies Allergy/AdvReac Type Severity Reaction Status Date / Time No Known Allergies Allergy Unverified 04/14/23 10:18 Consultations 04/14/23 11:24 ED Decision to Admit Stat 04/14/23 11:46 Consult Orthopedic Surgery Stat Procedures Performed Operation Date: 04/15/23 12:15 Actual Procedures p Left Hip Open Reduction Internal Fixation(Left) - Luiz Perea MD Ordered Studies 04/14/23 12:55 CT head/brain wo con Routine 04/15/23 12:15 FL hip LT 2-3V Routine Hospital Course (1) Transcervical fracture of left femur: (2) Syncope: (3) Atopic dermatitis: (4) CAD (coronary artery disease): Plan 72 year old gentleman with past history of CAD, ICM, GERD, atopic dermatitis , prediabetes, HLD, prior fall with right hip fracture 2021 s/p right hemia rthroplasty who is presenting to [facility] 3 after fall with subsequent hip fracture. Patient reports questionable syncope, but reports it to be more disorientation after landing. Of note, patient with long standing medication noncompliance, mostly secondary to financial limitations. He was managed for the following: #Left transcervical femoral fracture #Age-related osteoporotic fracture of the left hip Admitting Hip XR IMPRESSION: Acute nondisplaced mildly impacted transcervical left femoral fracture. Ortho consult, status post left hip ORIF on 04/15/2023. Follow-up with orthopedics upon discharge in 2 weeks time. Upon discharge Tylenol for mild to moderate pain, oxycodone for severe pain. Vitamin D level low, supplement started 04/15. Repeat level in 3 months. Patient has been made aware. #Mechanical fall #c/f Syncopal episode Patient's reports suggest disorientation on ground after fall 2/2 pain, as he denies presyncope and recalls "fall" ECHO w/ EF of 55-60%, Gr I diastolic dysfunction. Troponin trends x neg, pt w/ no chest pain. CXR w/ no congestion. CT head w/ no acute findings. PT/OT when able, Fall precaution. PT OT recommended rehab. Patient has been explained the need for acute rehab given his hip fracture. Patient adamant on going home today regardless of home health set up. manager universal notified to set up home health. Patient is okay with home health. #History of ICM #HTN #Obstructive CAD s/p cath 2012, NSTEMI occluded RCA Monitor on tele , initiated prior dose of beta-neo, transition to metoprolol succinate on discharge. Patient currently on baby aspirin twice daily for DVT prophylaxis, transition to daily aspirin after 4 to 6 weeks. Echo as above, continue telemetry monitoring. Cardiology follow-up on DC. History of medication noncompliance: Was taking metoprolol bid, discontinued by self. will probably start him on metoprolol post procedure. He uses albuterol inhaler as needed and only takes escitalopram and gabapentin at home. Outpatient chart reviewed 04/14 with metoprolol succinate 25 mg twice daily, Breo Ellipta 1 puff daily, KCl 10 mill equivalent twice a day, Dupixent every 2 weeks, aspirin 81 Mg daily. Prediabetes: A1c of 5.8, peer educator consult. A1c in 3 months. Lifestyle modification encouraged. Leukocytosis: Likely reactive secondary to pain. Trended down to normal. UA negative for UTI at presentation. CXR was also normal. Patient with no complaints/symptoms of infectious etiology. COPD: History of, no wheezing noted on admission. Uses albuterol inhaler as needed. Tobacco use: 0.5 to 1 packs a day, advised smoking cessation. Atopic dermatitis: Did not receive Dupixent injection for "months". Lac hydrin lotion while in the hospital. PCP Dr Dunham DVT : Baby aspirin twice daily. Admit med tele Patient is being discharged home with home health with following instruction at the point of discharge: Follow-up with your primary care physician within a week time and likely you will need labs CBC/CMP/magnesium/phosphorus. Follow-up with orthopedics in 2 weeks time upon discharge. You have a diagnosis of prediabetes with A1c of 5.8. You will need repeat A1c in 3 months time. Lifestyle modification encouraged as discussed at the bedside. Follow-up with your PCP office for long-term monitoring. Your vitamin D level was low, vitamin D supplement has been added. You will need repeat vitamin D level in 3 months time, coordinate with your PCP office to set up the test. We recommend you follow-up with cardiology upon discharge as prior. As discussed at the bedside, encourage medication compliance. Follow-up with the PCP office within a week time and resume your prior recommended medications. As discussed at the bedside, you have declined acute rehab facility which is very important in your case given hip fracture. You have been explained in detail the risks of going home and not getting supervised therapy at rehab facility after hip fracture. You accept the risks of fall and further injury and not getting optimal care by going to home. You want to go home regardless of home health set up today, for home health set up - window caser has been notified. Continue physical therapy with home health. You will need to take baby aspirin twice a day for 30 days and then you can continue to take baby aspirin daily as prior recommendation. You can take [id number] Tylenol for mild to moderate pain. You will be discharged on oxycodone for severe pain. If pain is continuing/worsening, you will need further evaluation by your PCP office or orthopedics office. Take your medications as prescribed. Please make sure that you are able to get your medications today by calling your pharmacy before you leave the hospital so that your treatment continuity is not broken. Home Health Attestation I certify that this patient is under my care and that I, or a physicians assistant media buyer working with me, had a face to-face encounter that meets the home health bphb-if-voel encounter requirements with this patient. The encounter with the patient was in whole, or in part, for the following medical condition, which is the primary reason for home health care (list medical condition): I certify that, based on my findings, the following services are medically necessary home health services: My clinical findings support the need for the above services because: Further, I certify that my clinical findings support that this patient is homebound (i.e. absences from home require considerable and taxing effort and are for medical reasons or orthodoxy services or infrequently or of short duration when for other reasons) because: Certification for Home Health Services: Based on the above findings, I certify that this patient is confined to the home and needs intermittent alf care, physical therapy and/or speech therapy or continues to need occupational therapy. The patient is under my care, and I have initiated the establishment of the plan of care. This patient will be followed by a physician who will periodically review the plan of care. Total Time Total Time Spent Total Time Spent (In Minutes): 45 Discharge Plan Discharge Items Patient Disposition: Home - Home Health Services Reason For Visit: PRE-SYNCOPAL, LEFT HIP FRACTURE Discharge Diagnosis: Left hip fracture Activity: Per Instructions section Weightbearing: Left weightbearing Weightbearing Comment: as tolerated with walker Non-emergency contact: Surgeon Call non-emergency contact if: you have any medication questions, your pain is not controlled, your temperature is above 101.5, your wound has increased redness and your wound has increased drainage Follow-up/Referrals: Luiz Perea MD [Surgeon] - ( follow-up with Dr. Perea or his PA in 2 weeks from the day of your surgery for your first postoperative visit.) Geena Dunham, [Primary Care Provider] - Diet: Heart Healthy Addtl Attending Provider Instructions: Follow-up with your primary care physician within a week time and likely you will need labs CBC/CMP/magnesium/phosphorus. Follow-up with orthopedics in 2 weeks time upon discharge. You have a diagnosis of prediabetes with A1c of 5.8. You will need repeat A1c in 3 months time. Lifestyle modification encouraged as discussed at the bedside. Follow-up with your PCP office for long-term monitoring. Your vitamin D level was low, vitamin D supplement has been added. You will need repeat vitamin D level in 3 months time, coordinate with your PCP office to set up the test. We recommend you follow-up with cardiology upon discharge as prior. As discussed at the bedside, encourage medication compliance. Follow-up with the PCP office within a week time and resume your prior recommended medications. As discussed at the bedside, you have declined acute rehab facility which is very important in your case given hip fracture. You have been explained in detail the risks of going home and not getting supervised therapy at rehab facility after hip fracture. You accept the risks of fall and further injury and not getting optimal care by going to home. You want to go home regardless of home health set up today, for home health set up - window caser has been notified. Continue physical therapy with home health. You will need to take baby aspirin twice a day for 30 days and then you can continue to take baby aspirin daily as prior recommendation. You can take [id number] Tylenol for mild to moderate pain. You will be discharged on oxycodone for severe pain. If pain is continuing/worsening, you will need further evaluation by your PCP office or orthopedics office. Take your medications as prescribed. Please make sure that you are able to get your medications today by calling your pharmacy before you leave the hospital so that your treatment continuity is not broken. Addtl Entry Specialist Provider Instructions: [facility] DISCHARGE INSTRUCTIONS: HIP FRACTURE SELF CARE INSTRUCTIONS: A. You are to ambulate with a walker or crutches for approximately 6 weeks. B. You are WEIGHT BEARING TOLERATED on your operative lower extremity for at least 6 weeks. C. Wear low heeled shoes with non-slip soles D. Be sure that your floors are free of things that could trip you throw rugs, electrical cords, and small objects. Avoid wet and waxed floors, especially with crutches/walker/cane. E. Try to walk several times a day with rest periods between. F. You may shower 48 hours after surgery and get the incision area wet, but DO NOT soak or submerge incision area in water. (No baths, swimming pools, hot tubs) G. You may have a large, band-aid like dressing over your incision (Aquacel). This will remain on your incision for 7 days, and then can be removed. You CAN shower with this on. If incision is leaking through the dressing, please call the office . H. Do NOT apply soap or any ointment/lotions directly over incision. I. You may use ice as needed to operative site. SPECIAL CARE INSTRUCTIONS: VERY IMPORTANT TO READ AND REVIEW A. You may be at risk for phlebitis or blood clots. a. Wear surgical stockings (ADAM hose) for 2 weeks after surgery to improve circulation and reduce swelling. b. Take ASPIRIN 81 mg twice daily for 4 weeks or as directed. This is your blood thinner. . B. There are a few signs you need to watch for after you are home. Call [facility] at [phone] if you experience any of the following: a. If you have a temperature of 101 degrees or higher. b. Sudden increase in pain in your hip not relieved by rest or pain medication. c. Any fluid or drainage from the incision; redness of the incision. d. Shortness of breath or chest pain.. C. Pain Medication: a. You will be prescribed pain medication upon discharge that should last till your first post-operative appointment. b. If you experience nausea and/or skin rash, discontinue this medication and contact our office for an alternative medication. c. Caution- narcotic pain medication can cause constipation. FOLLOW UP VISIT: Please call [facility] at [phone] to schedule a follow up appointment 10-14 days from the date of your surgery date. Pending Studies at Discharge: No Stand-Alone Forms: My [facility], Smoking Cessation Medications and DC Order Prescriptions: New metoprolol succinate 25 mg tablet extended release 24 hr 25 mg PO BID Qty: 60 0RF aspirin 81 mg Tablet,Delayed Release (Dr/Ec) 81 mg PO BID 30 Days Qty: 60 0RF fluticasone furoate-vilanterol [Breo Ellipta] 100-25 mcg/dose Blister With Device 1 inh inhalation DAILY Qty: 60 0RF Lac-Hydrin Five 5 % Lotion 1 applic EXT BID Qty: 226 0RF cholecalciferol (vitamin D3) 125 mcg (5,000 unit) Tablet 125 mcg PO QAM Qty: 30 0RF oxycodone 5 mg Tablet 5 mg PO BID PRN (Reason: severe pain (scale score 7-10)) 5 Days Qty: 10 0RF Continued gabapentin 300 mg capsule 300 mg PO PM escitalopram oxalate 10 mg tablet 10 mg PO QAM Discharge Orders: Discharge Order (Routine); Ordered 04/17/23 Ordered By: Masha Toribio/Other Patient Handouts: Prediabetes, 5 Steps for Eating Healthier Admission Data Admit Date/Time: 04/14/23 11:45 Attending Provider: Masha Holguin Admit Provider: Anne Barber Primary Care Provider: Geena Dunham Other Providers: [facility]; Anne Barber; Luiz Perea
== END 2023-04-17 17:40 | disposition home health service (06) | DRG 482 ==
LOC: ED 07:43 → SUATTDRO 11:45 → EDINP 11:45 → 2N 04-15 16:41